=== PATIENT | male | born 1945 | race Caucasian/White ===

== ENCOUNTER → 2016-03-20 | Outpatient (CLI) | payer MEDICARE, OTHER ==
[~2016-03-20] MED LIST: REGADENOSON INJ 0.4 MG/5 ML DISP.SYRIN IV ONE
--- NOTE | 2016-03-20 20:06 | DRAGON STRESS TEST REPORT ---
Intravenous Lexiscan Cardiolite stress test using single photon emmision computerized tomography. Date of procedure: 03/20/2016. Ordering Provider: Dr. Tiera Pyle Indication: Chest pain, and a patient with coronary artery disease and coronary artery bypass graft surgery Coronary risk factors: Age, diabetes, hypertension , and strong family history of coronary artery disease. Resting EKG: Sinus rhythm cannot exclude old anterior and inferior my Jennifer fraction Stress EKG: No changes of ischemia. The patient had no chest pain or discomfort, and there were no arrhythmias seen. The patient had transient shortness of breath which was relieved with drinking Pepsi. Reason for termination: Protocol. Conclusions: Normal EKG and hemodynamic response to IV Lexiscan. Nuclear data: At rest the patient was given 14.89 millicuries of technetium 99m sestamibi injected intravenously. As per protocol rest non gated SPECT images were obtained. Subsequently the patient was given intravenous Lexiscan at a dose of 0.4 mg in 5 mL intravenously, followed by flush with normal saline. Subsequently the stress dose of 45.1 millicuries of technetium 99m sestamibi was injected intravenously. As per protocol stress gated images were obtained. Nuclear interpretation: Review of images showed that there is a mild to moderate perfusion defect in inferior wall in the stress images, and this normalizes in the resting images. The rest of the segments of the myocardium had normal perfusion at rest, and normal perfusion post stress with IV Lexiscan. All segments of the myocardium had normal motion, contraction, and thickening by gated study. The patient had a short septum. T. I D. ratio was normal at 1.17. Computer read rest, and stress left ventricular ejection fraction were 52 %, and 39 %, respectively. Visually both the stress and rest ejection fractions were normal, and greater than 55%. Conclusion: 1. There scintigraphic evidence of Lexiscan induced mild to moderate myocardial ischemia involving the inferior wall. 2. There is no scintigraphic evidence of myocardial infarction/scar. 3. The patient had short septum. Recommendations: !.Correlate clinically. If no significant Contraindication would recommend cardiac catheterization 2.Aggressive risk factor modification, and aggressively treating the underlying co- morbidities. [facility]ITAL[facility]
== END ==
LOC: RAD 08:31
PROVIDERS: ATTEND Specialist
DX: R07.9 Chest pain, unspecified (principal); I25.10 Atherosclerotic heart disease of native coronary artery without angina pectoris; Z95.1 Presence of aortocoronary bypass graft; I10 Essential (primary) hypertension; E11.9 Type 2 diabetes mellitus without complications
CPT/HCPCS: 93017; 78452; A9500; J2785; Q9969

== ENCOUNTER → 2016-04-22 | Outpatient (CLI) | payer MEDICARE, OTHER ==
[2016-04-22 17:02] LABS: ABSOLUTE BASOPHILS # (AUTO) 0.1 10^3/uL (0.0-0.2); ABSOLUTE EOSINOPHILS # (AUTO) 0.2 10^3/uL (0.0-0.6); ABSOLUTE LYMPHOCYTES (AUTO) 1.7 10^3/uL (0.5-4.7); ABSOLUTE MONOCYTES (AUTO) 0.5 10^3/uL (0.1-1.4); ABSOLUTE NEUT (AUTO) 5.5 10^3/uL (1.7-8.2); EOSINOPHILS % (AUTO) 2.8 % (0-6); HEMATOCRIT 41.3 % (37.9-51.0); HEMOGLOBIN 13.7 g/dL (13.5-17.0); HGB HCT DIFFERENCE -0.2; LYMPHOCYTES % (AUTO) 21.6 % (13-45); MEAN CORPUSCULAR HEMOGLOBIN 30.2 pg (27.0-33.4); MEAN CORPUSCULAR HGB CONC 33.3 g/dL (32.0-36.0); MEAN CORPUSCULAR VOLUME 91 fl (80-97); MONOCYTES % (AUTO) 5.7 % (3-13); RED BLOOD COUNT 4.55 10^6/uL (4.35-5.55); RED CELL DISTRIBUTION WIDTH 15.4 % (11.5-14.0); SEGMENTED NEUTROPHILS % (AUTO) 68.9 % (42-78)
[2016-04-22 17:11] LABS: PROTHROMBIN TIME 13.3 SEC (11.4-15.4)
[2016-04-22 17:12] LABS: PARTIAL THROMBOPLASTIN TIME 26.4 SEC (23.5-35.8)
[2016-04-22 17:24] LABS: ANION GAP 12 (5-19); BLOOD UREA NITROGEN 13 mg/dL (7-20); CARBON DIOXIDE 19 mmol/L (22-30); CHLORIDE 109 mmol/L (98-107); CREATININE RESULT 1.13 mg/dL (0.52-1.25); GLUCOSE 252 mg/dL (75-110); MAGNESIUM 1.9 mg/dL (1.6-2.3); POTASSIUM 4.3 mmol/L (3.6-5.0); SODIUM 139.5 mmol/L (137-145)
== END ==
LOC: OD 16:13
PROVIDERS: ATTEND Specialist
DX: E11.9 Type 2 diabetes mellitus without complications (principal); I12.9 Hypertensive chronic kidney disease with stage 1 through stage 4 chronic kidney disease, or unspecified chronic kidney disease; N18.9 Chronic kidney disease, unspecified; R09.89 Other specified symptoms and signs involving the circulatory and respiratory systems; R07.9 Chest pain, unspecified; Z79.899 Other long term (current) drug therapy; F06.4 Anxiety disorder due to known physiological condition; Z95.1 Presence of aortocoronary bypass graft; G20 Parkinson's disease; I49.5 Sick sinus syndrome; I34.0 Nonrheumatic mitral (valve) insufficiency; I73.9 Peripheral vascular disease, unspecified; G47.30 Sleep apnea, unspecified; Z95.0 Presence of cardiac pacemaker
CPT/HCPCS: 36415; 80051; 82565; 82947; 83735; 84520; 85025; 85610; 85730

== ENCOUNTER 2016-05-08 11:21 | Emergency (ER) | payer MEDICARE, OTHER ==
[2016-05-08 11:54] LABS: ABSOLUTE BASOPHILS # (AUTO) 0.1 10^3/uL (0.0-0.2); ABSOLUTE EOSINOPHILS # (AUTO) 0.3 10^3/uL (0.0-0.6); ABSOLUTE LYMPHOCYTES (AUTO) 2.3 10^3/uL (0.5-4.7); ABSOLUTE MONOCYTES (AUTO) 0.6 10^3/uL (0.1-1.4); ABSOLUTE NEUT (AUTO) 5.8 10^3/uL (1.7-8.2); BASOPHILS % (AUTO) 0.9 % (0-2); EOSINOPHILS % (AUTO) 3.6 % (0-6); HEMOGLOBIN 12.7 g/dL (13.5-17.0); HGB HCT DIFFERENCE -0.9; LYMPHOCYTES % (AUTO) 25.6 % (13-45); MEAN CORPUSCULAR HEMOGLOBIN 29.8 pg (27.0-33.4); MEAN CORPUSCULAR HGB CONC 32.6 g/dL (32.0-36.0); MEAN CORPUSCULAR VOLUME 92 fl (80-97); MONOCYTES % (AUTO) 6.2 % (3-13); RED BLOOD COUNT 4.26 10^6/uL (4.35-5.55); RED CELL DISTRIBUTION WIDTH 15.8 % (11.5-14.0); SEGMENTED NEUTROPHILS % (AUTO) 63.7 % (42-78); WHITE BLOOD COUNT 9.1 10^3/uL (4.0-10.5)
[2016-05-08 12:09] LABS: ALANINE AMINOTRANSFERASE 27 U/L (21-72); ALBUMIN 3.8 g/dL (3.5-5.0); ALKALINE PHOSPHATASE 70 U/L (38-126); ANION GAP 10 (5-19); ASPARTATE AMINO TRANSFERASE 42 U/L (17-59); BILIRUBIN,TOTAL 0.8 mg/dL (0.2-1.3); BLOOD UREA NITROGEN 9 mg/dL (7-20); CALCIUM 9.1 mg/dL (8.4-10.2); CARBON DIOXIDE 19 mmol/L (22-30); CHLORIDE 111 mmol/L (98-107); CREATINE KINASE 44 U/L (55-170); CREATININE RESULT 0.75 mg/dL (0.52-1.25); GLUCOSE 216 mg/dL (75-110); MAGNESIUM 1.6 mg/dL (1.6-2.3); SODIUM 140.2 mmol/L (137-145); TOTAL PROTEIN 6.2 g/dL (6.3-8.2); VENOUS BLOOD BASE EXCESS -4.3 mmol/L; VENOUS BLOOD HCO3 21.4 mmol/L (20-32); VENOUS BLOOD PCO2 41.4 mmHg (35-63); VENOUS BLOOD PH 7.33 (7.30-7.42)
--- NOTE | 2016-05-08 12:13 | ER Document Report ---
ED General - General Chief Complaint: Syncope Stated Complaint: WEAKNESS Time seen by provider: 11:25 Mode of Arrival: Wheelchair Information source: Patient, Relative Notes: 71-year-old male with a history of one vessel cardiac bypass surgery and AICD defibrillator placement and probably cardiomyopathy who is followed by Dr. Pyle and is scheduled have a heart catheterization in [place] at the end of this month who passed out in the emergency department today a visiting his who is a patient here. Patient apparently was exerting himself more than normal this morning caring for his before she came to the emergency department and did not eat breakfast. Daughter was with him and reports that when he walked into his 's room he became very pale I told in the back of his head and she had to catch him to keep her from falling. The patient says he never truly lost consciousness the episode only lasted a few seconds. Ports he had no sensation of chest pain, shortness breath, diaphoresis, nausea, or vomiting with this. He was immediately moved to an exam room and within a few minutes felt back to normal. Daughter reports he chronically has some weakness and shortness of breath related to heart problems and also has Parkinson's disease in his appearance at time of evaluation by this physician was back to his baseline. The patient is not sure what symptoms he's been having recently that prompted his referral [place] for catheterization. He reports no recent fever, chills, cough, chest pain, abdominal pain, back pain, hematemesis , hematochezia, or melena. He reports this sensation of needing to have a bowel movement now which is typical for him as he has frequent diarrhea related to his prior gastric bypass surgery. He denies any pain numbness weakness to any extremity. Physical Exam: General: Alert, appears well. Somewhat tremulous in bed which family reports is his baseline HEENT: Normocephalic. Atraumatic. PERRLA. Extraocular movements intact. Discs sharp no papilledema Oropharynx clear. Neck: Supple. Non-tender. No JVD no carotid bruits Respiratory: No respiratory distress. Clear and equal breath sounds bilaterally. Cardiovascular: Regular rate and rhythm. Abdominal: Normal Inspection. Soft, non-tender. No distension. Normal Bowel Sounds. No guarding rebound rigidity Back: Non-tender. No deformity or step off. Extremities: Moves all four extremities. Upper extremities: Normal inspection. Non-tender. Normal color. Normal ROM. Normal temperature. Lower extremities: Normal inspection. Non-tender. No edema. Normal color. Normal ROM. Normal temperature. Neurological: Cranial nerves III-XII grossly intact bilaterally. Strength 5/5 throughout. Sensation intact to light touch. Normal cognition. AAOx4. Normal speech. Cerebellar function intact by finger-nose test bilaterally Psychological: Normal affect. Normal Mood. Skin: Warm. Dry. Normal color. TRAVEL OUTSIDE OF THE [place] IN LAST 30 DAYS: No - Related Data Allergies/Adverse Reactions: adhesive tape [Adhesive Tape] Allergy (Verified 02/12/16 12:59) Blisters, Rash iodine [Iodine] Allergy (Verified 02/12/16 12:59) RASH, ITCH latex [Latex] Allergy (Verified 02/12/16 12:59) RASH povidone-iodine [From Betadine] Allergy (Verified 02/12/16 12:59) Soap [From Betadine] Allergy (Verified 02/12/16 12:59) meperidine HCl [From Demerol] Adverse Reaction (Verified 02/12/16 12:59) CAN CAUSE ITCHING IN LARGE DOSES promethazine HCl [From Phenergan] Adverse Reaction (Verified 02/12/16 12:59) Zqohjda-Roz-Eqx Reductase Inhibitor Adverse Reaction (Verified 02/12/16 12:59) elevated LFT's STEROIDS Adverse Reaction (Uncoded 02/12/16 12:59) WEAKNESS TO LEGS Past Medical History - Social History Smoking Status: Never Smoker Family History: CAD - Mother - Past Medical History Cardiac Medical History: Reports: Hx Coronary Artery Disease, Hx Heart Attack - BYPASS 05/2003, Hx Hypercholesterolemia, Hx Hypertension Pulmonary Medical History: Reports: Hx Bronchitis Denies: Hx Asthma, Hx COPD, Hx Pneumonia Neurological Medical History: Denies: Hx Cerebrovascular Accident, Hx Seizures Endocrine Medical History: Reports: Hx Diabetes Mellitus Type 2 Renal/ Medical History: Reports: Hx Kidney Stones GI Medical History: Reports: Hx Gastroesophageal Reflux Disease Past Surgical History: Reports: Hx Abdominal Surgery - gastric bypass, Hx Cardiac Surgery - BYPASS 2003, Hx Kidney (Renal Surgery) - lithotripsy, Hx Orthopedic Surgery - back; neck; right hand - Immunizations Immunizations up to date: Yes Hx Diphtheria, Pertussis, Tetanus Vaccination: Yes Hx Pneumococcal Vaccination: 03/03/13 Review of Systems - Review of Systems Constitutional: denies: Chills, Fever EENT: denies: Ear pain, Throat pain Cardiovascular: Syncope. denies: Chest pain, Dyspnea Respiratory: denies: Cough Gastrointestinal: denies: Abdominal pain, Diarrhea, Nausea, Vomiting, Blood in vomit, Black stools, Rectal bleeding Genitourinary: denies: Burning, Dysuria Musculoskeletal: denies: Back pain, Leg swelling Skin: denies: Rash Neurological/Psychological: denies: Speech impairment, Numbness Physical Exam - Vital signs Vitals: Temp Pulse Resp BP Pulse Ox 98.1 F 78 16 99/67 L 98 05/08/16 11:25 05/08/16 11:25 05/08/16 11:25 05/08/16 11:25 05/08/16 11:25 Course - Re-evaluation Re-evalutation: 05/08/16 18:20 Patient during his stay in emergency department and one episode where he sat up on the stretcher and then felt dizzy. His blood pressure dropped to 90 systolic his dizziness resolved with lying flat. He was treated with a 2 50 mL saline bolus his blood pressure improved to 119 he's had no further symptoms. Patient's [employer] pacemaker was interrogated and the tech reports that there was a several second long run of SVT at approximately 11:00 this morning. This is roughly the time when the patient had his syncopal episode but I'm not able to pinpoint that exactly. The patient has not had any chest pain or shortness of breath during his stay here. Differential here would include mild volume depletion, vagal syncope, symptomatic SVT for the patient also has an extensive prior cardiac history with a recent abnormal stress test and is scheduled for catheterization at [facility] in the near future. I discussed case with Dr. Pyle patient's checkman and he requests the patient be transferred divided now the hope of doing an urgent catheterization. I discussed the case with Dr. Ruthy Marvin packaging operator there and she has accepted the patient in transfer. I was informed initially that they had no beds available and plans were made to keep the patient in the emergency department pending bed availability which hopefully would be the following day. Later however were contacted by the [facility] and informed that they do have a bed and are coming to take the patient at time of dictation at 1815. Patient remains symptom-free at the moment and is stable for transport - Vital Signs Vital signs: Temp Pulse Resp BP Pulse Ox 98.1 F 63 16 119/81 96 05/08/16 16:00 05/08/16 16:00 05/08/16 17:01 05/08/16 17:00 05/08/16 17:01 - Laboratory Result Diagrams: 05/08/16 11:33 05/08/16 11:33 Laboratory results interpreted by me: 05/08/16 05/08/16 05/08/16 11:23 11:33 11:33 RBC 4.26 L Hgb 12.7 L RDW 15.8 H Chloride 111 H Carbon Dioxide 19 L Glucose 216 H POC Glucose 279 H Creatine Kinase 44 L Total Protein 6.2 L Urine Ascorbic Acid 05/08/16 14:20 RBC Hgb RDW Chloride Carbon Dioxide Glucose POC Glucose Creatine Kinase Total Protein Urine Ascorbic Acid 20 H - Diagnostic Test Radiology reviewed: Image reviewed, Reports reviewed - EKG Interpretation by Me Additional EKG results interpreted by me: 05/08/16 12:15 EKG reviewed by myself shows sinus rhythm at 67 with old inferior infarct and minimal nonspecific T-wave changes Discharge - Discharge Clinical Impression: Syncope Qualifiers: Syncope type: unspecified Qualified Code(s): R55 - Syncope and collapse CAD (coronary artery disease) Qualifiers: Coronary Disease-Associated Artery/Lesion type: [place] artery [place] vs. transplanted heart: [place] heart Associated angina: angina presence unspecified Qualified Code(s): I25.10 - Atherosclerotic heart disease of [place] coronary artery without angina pectoris Condition: Fair Disposition: [facility]
[2016-05-08 12:22] LABS: CREATINE KINASE MB < 0.22 ng/mL (<4.55); TROPONIN I < 0.012 ng/mL
[2016-05-08 14:46] LABS: APPEARANCE,URINE CLEAR; BILIRUBIN,URINE NEGATIVE (NEGATIVE); GLUCOSE, URINE NEGATIVE (NEGATIVE); KETONES,URINE NEGATIVE (NEGATIVE); LEUKOCYTE ESTERASE,URINE NEGATIVE (NEGATIVE); NITRITE,URINE NEGATIVE (NEGATIVE); PROTEIN,URINE NEGATIVE (NEGATIVE); URINE SPECIFIC GRAVITY 1.009; UROBILINOGEN,URINE NEGATIVE mg/dL (<2.0)
[2016-05-08] MEDS ORDERED: NORMAL SALINE 1000 ML 250 ML IV ONE (15:57)
[2016-05-08] MEDS ORDERED: ALBUTEROL SULFATE 0.083% NEB 2.5 MG/3 ML AMPUL NEB PRN (17:06)
[2016-05-08] MEDS ORDERED: ACETAMINOPHEN 325 MG TABLET PO PRN (17:06)
[2016-05-08] MEDS ORDERED: ONDANSETRON HCL INJ/PF 4 MG/2 ML SDV IV PRN (17:06)
[2016-05-08] MEDS ORDERED: DEXTROSE 40% GEL 15 GM TUBE PO PRN ×2 (17:11)
[2016-05-08] MEDS ORDERED: INSULIN LISPRO 100 UNIT/ML 3 ML VIAL SUBCUT PRN (17:11)
[2016-05-08] MEDS ORDERED: GLUCAGON,HUMAN RECOMB 1 MG INJ IM PRN (17:11)
[2016-05-08] MEDS ORDERED: DEXTROSE 50%-WATER 25 GM/50 ML DISP.SYRIN IV PRN ×2 (17:11)
--- NOTE | 2016-05-08 17:54 | PDOC H&P/TRANSFER SUM ---
General Admission Date/PCP: LAKESHA VILLA MD Transfer Date: 05/08/16 Accepting Facility: [facility] Resuscitation Status: Full Code Chief Complaint: Syncope - Transfer Diagnosis (1) Syncope Current Visit: Yes (2) Diabetes mellitus Current Visit: Yes (3) Status post gastric bypass for obesity Current Visit: Yes (4) Tardive dyskinesia Current Visit: Yes (5) CAD (coronary artery disease) Current Visit: Yes (6) Hypertension Current Visit: Yes (7) ADRIANNA (obstructive sleep apnea) Current Visit: Yes (8) Hypothyroidism Current Visit: Yes - Transfer Medications Home Medications: Allopurinol [Zyloprim 300 mg Tablet] 300 mg PO DAILY 08/01/14 Aspirin [Aspirin EC] 81 mg PO DAILY PRN 08/01/14 Buspirone HCl [Buspar 15 mg Tablet] 1 tab PO ACHS 08/01/14 Carvedilol [Coreg 6.25 mg Tablet] 1 tab PO BID 08/01/14 Docusate Sodium [Colace 100 mg Capsule] 100 mg PO DAILY 08/01/14 Furosemide [Lasix 40 mg Tablet] 40 mg PO QAM 08/01/14 Gabapentin Enacarbil [Horizant] 600 mg PO DAILY 08/01/14 Glimepiride [Amaryl 1 mg Tablet] 2 mg PO QAM 08/01/14 Hydrocodone/Acetaminophen [[place] 5-325 mg Tablet] 1 tab PO Q4H 08/01/14 Isosorbide Mononitrate [Imdur 60 mg Tablet.er] 60 mg PO DAILY 08/01/14 Lorazepam [Ativan 1 mg Tablet] 1 tab PO BID 08/01/14 Metformin HCl [Glucophage] 500 mg PO BID 08/01/14 Albuterol Sulfate [Proair HFA] 2 inhaler IH PRN PRN 02/12/16 Cholecalciferol (Vitamin D3) [Vitamin D3 400 Unit Tablet] 400 unit PO DAILY 02/15 Donepezil HCl 10 mg PO DAILY 02/12/16 Doxepin HCl [Sinequan 25 mg Capsule] 25 mg PO DAILY 02/12/16 Gabapentin Enacarbil [Horizant] 600 mg PO DAILY 02/12/16 Liothyronine Sodium [Cytomel] 5 mcg PO DAILY 02/12/16 Olopatadine HCl [Pataday] 2.5 drop BTH_EYE DAILY 02/12/16 Ondansetron [Ondansetron Odt] 8 mg PO PRN PRN 02/12/16 Rizatriptan Benzoate [Maxalt] 5 mg PO PRN PRN 02/12/16 Zaleplon [Sonata] 10 mg PO DAILY 02/12/16 Transfer Medications: Current Medications Acetaminophen (Tylenol 325 Mg Tablet) 650 mg PO Q4HP PRN PRN Reason: FOR PAIN OR TEMP Stop: 06/07/16 17:05 Albuterol (Ventolin 0.083% Neb 2.5 Mg/3 Ml Ampul) 2.5 mg NEB RTQ4HP PRN PRN Reason: SHORTNESS OF BREATH Stop: 06/07/16 17:05 Aspirin (Ecotrin 325 Mg Ec Tablet) 325 mg PO DAILY HENRI Stop: 06/08/16 09:59 Dextrose (Dextrose Inj 50% Syringe (25 Gm/50 Ml)) 12.5 gm IV PRN PRN; Protocol PRN Reason: FOR BG 50-69 IN ALERT PATIENT Stop: 06/07/16 17:10 Dextrose (Dextrose Inj 50% Syringe (25 Gm/50 Ml)) 25 gm IV PRN PRN PRN Reason: Protocol Stop: 06/07/16 17:10 Enoxaparin Sodium (Lovenox Inj 40 Mg/0.4 Ml Disp.Syrin) 40 mg SUBCUT QAM HENRI Stop: 06/08/16 07:59 Enoxaparin Sodium (Lovenox Inj 40 Mg/0.4 Ml Disp.Syrin) 40 mg SUBCUT NOW ONE Stop: 05/08/16 18:31 Glucagon (Glucagen Inj 1 Mg Vial) 1 mg IM PRN PRN; Protocol PRN Reason: Evaluate for BG < 70 Stop: 06/07/16 17:10 Glucose (Glutose 40% Gel 15 Gm Tube) 15 gm PO PRN PRN; Protocol PRN Reason: FOR BG 50-69 IN ALERT PATIENT Stop: 06/07/16 17:10 Glucose (Glutose 40% Gel 15 Gm Tube) 30 gm PO PRN PRN; Protocol PRN Reason: FOR BG < 50 IN ALERT PATIENT Stop: 06/07/16 17:10 Insulin Human Lispro (Humalog Insulin 100 Unit/1 Ml 3 Ml Vial) 0 - 12 unit SUBCUT ACHSP PRN PRN Reason: Protocol Stop: 06/07/16 17:10 Ondansetron HCl (Zofran Inj/Pf 4 Mg/2 Ml Sdv) 4 mg IV Q8HP PRN PRN Reason: FOR NAUSEA/VOMITING Stop: 06/07/16 17:05 Sodium Chloride (Saline Flush 2.5 Ml Monoject Prefil Syrin) 2.5 ml IV Q8 HENRI Stop: 06/07/16 21:59 - Allergies Allergies/Adverse Reactions: adhesive tape [Adhesive Tape] Allergy (Verified 02/12/16 12:59) Blisters, Rash iodine [Iodine] Allergy (Verified 02/12/16 12:59) RASH, ITCH latex [Latex] Allergy (Verified 02/12/16 12:59) RASH povidone-iodine [From Betadine] Allergy (Verified 02/12/16 12:59) Soap [From Betadine] Allergy (Verified 02/12/16 12:59) meperidine HCl [From Demerol] Adverse Reaction (Verified 02/12/16 12:59) CAN CAUSE ITCHING IN LARGE DOSES promethazine HCl [From Phenergan] Adverse Reaction (Verified 02/12/16 12:59) Hgnhoke-Fyg-Tdp Reductase Inhibitor Adverse Reaction (Verified 02/12/16 12:59) elevated LFT's STEROIDS Adverse Reaction (Uncoded 02/12/16 12:59) WEAKNESS TO LEGS - Diet/Activity Discharge Diet: Cardiac, Diabetic Discharge Activity: Activity As Tolerated History of Present Illness Admission Date/PCP: LAKESHA VILLA MD Patient complains of: Syncope History of Present Illness: TATA RAYGOZA is a 71 year old male with past medical history of coronary artery disease, diabetes, hypertension, abnormal stress test, pacemaker that had a syncopal episode in the emergency department while visiting with his who was also being admitted for syncopal episode. Patient had stress test on 03/20/[address] Pyle that showed mild to moderate ischemia of the inferior wall. He was supposed to have outpatient cardiac catheterization arranged but this has not been performed. Patient has a really been evaluated in the emergency department by his manager talent Dr. Pyle and Dr. Pyle has arranged for patient to be transferred to [facility] for interventional cardiology evaluation. [facility] will be able to accept him in the morning. Patient is chest pain-free at time of my evaluation. Past Medical History Cardiac Medical History: Reports: Coronary Artery Disease, Myocardial Infarction - BYPASS 05/2003, Hyperlipidema, Hypertension Pulmonary Medical History: Reports: Bronchitis Denies: Asthma, Chronic Obstructive Pulmonary Disease (COPD), Pneumonia Neurological Medical History: Denies: Seizures Endocrine Medical History: Reports: Diabetes Mellitus Type 2, Hypothyroidism GI Medical History: Reports: Gastroesophageal Reflux Disease Hematology: Denies: Anemia Past Surgical History Past Surgical History: Reports: Coronary Artery Bypass Graft, Gastric Bypass Surgery, Orthopedic Surgery - back; neck; right hand, Pacemaker Social History Information Source: Patient Lives with: Spouse/Significant other Smoking Status: Never Smoker Frequency of Alcohol Use: None Hx Recreational Drug Use: No Hx Prescription Drug Abuse: No - Advance Directive Resuscitation Status: Full Code Family History Family History: CAD - Mother Parental Family History Reviewed: Yes Children Family History Reviewed: Yes Sibling(s) Family History Reviewed.: Yes Review of Systems Constitutional: ABSENT: chills, fever(s), headache(s), weight gain, weight loss Eyes: ABSENT: visual disturbances Ears: ABSENT: hearing changes Cardiovascular: PRESENT: chest pain - Intermittent. ABSENT: dyspnea on exertion , edema, orthropnea, palpitations Respiratory: ABSENT: cough, hemoptysis Gastrointestinal: ABSENT: abdominal pain, constipation, diarrhea, hematemesis, hematochezia, nausea, vomiting Genitourinary: ABSENT: dysuria, hematuria Musculoskeletal: ABSENT: joint swelling Integumentary: ABSENT: rash, wounds Neurological: PRESENT: syncope. ABSENT: abnormal gait, abnormal speech, confusion, dizziness, focal weakness Psychiatric: ABSENT: anxiety, depression, homidical ideation, suicidal ideation Endocrine: ABSENT: cold intolerance, heat intolerance, polydipsia, polyuria Hematologic/Lymphatic: ABSENT: easy bleeding, easy bruising Physical Exam Vital Signs: Temp Pulse Resp BP Pulse Ox 98.1 F 63 18 90/49 L 89 L 05/08/16 16:00 05/08/16 16:00 05/08/16 16:00 05/08/16 16:00 05/08/16 16:00 Intake & Output 05/07/16 05/08/16 05/09/16 06:59 06:59 06:59 Weight 113.398 kg PHYSICAL EXAM: GENERAL: Appears well, no acute distress HEENT: Normocephalic, no scleral icterus, conjunctiva clear, EOEM intact, PERRLA , moist mucous membranes NECK: trachea midline, no thyromegally RESPIRATORY: Clear to auscultation, no wheezes/rhonchi CARDIAC: Regular rate and rhythm, no murmur/bart/rub ABDOMEN: Soft, no distension, no tenderness, no guarding, normal bowel sounds, negative Rodriguez sign RECTAL: deferred : deferred EXTREMITIES: No edema, cyanosis, clubbing MUSCULOSKELETAL: No joint swelling or deformity VASCULAR: normal peripheral pulses NEUROLOGIC: Alert, oriented to person/place/time, normal speech, cranial nerves grossly intact, 5/5 strength in all extremities, tactile sensation intact in all extremities SKIN: No rash, no wounds, no worrisome skin lesions PSYCHIATRIC: Normal mood, normal affect Results Laboratory Results: 05/08/16 11:33 05/08/16 11:33 05/08/16 05/08/16 05/08/16 11:33 11:33 11:33 WBC 9.1 RBC 4.26 L Hgb 12.7 L Hct 39.0 MCV 92 MCH 29.8 MCHC 32.6 RDW 15.8 H Plt Count 213 Seg Neutrophils % 63.7 Lymphocytes % 25.6 Monocytes % 6.2 Eosinophils % 3.6 Basophils % 0.9 Absolute Neutrophils 5.8 Absolute Lymphocytes 2.3 Absolute Monocytes 0.6 Absolute Eosinophils 0.3 Absolute Basophils 0.1 VBG pH 7.33 VBG pCO2 41.4 VBG HCO3 21.4 VBG Base Excess -4.3 Sodium 140.2 Potassium 4.0 Chloride 111 H Carbon Dioxide 19 L Anion Gap 10 BUN 9 Creatinine 0.75 Est GFR ( Amer) > 60 Est GFR (Non-Af Amer) > 60 Glucose 216 H Calcium 9.1 Magnesium 1.6 Total Bilirubin 0.8 AST 42 ALT 27 Alkaline Phosphatase 70 Total Protein 6.2 L Albumin 3.8 Urine Color Urine Appearance Urine pH Ur Specific Ione Urine Protein Urine Glucose (UA) Urine Ketones Urine Blood Urine Nitrite Ur Leukocyte Esterase Urine WBC (Auto) Urine RBC (Auto) 05/08/16 14:20 WBC RBC Hgb Hct MCV MCH MCHC RDW Plt Count Seg Neutrophils % Lymphocytes % Monocytes % Eosinophils % Basophils % Absolute Neutrophils Absolute Lymphocytes Absolute Monocytes Absolute Eosinophils Absolute Basophils VBG pH VBG pCO2 VBG HCO3 VBG Base Excess Sodium Potassium Chloride Carbon Dioxide Anion Gap BUN Creatinine Est GFR ( Amer) Est GFR (Non-Af Amer) Glucose Calcium Magnesium Total Bilirubin AST ALT Alkaline Phosphatase Total Protein Albumin Urine Color YELLOW Urine Appearance CLEAR Urine pH 5.0 Ur Specific Ione 1.009 Urine Protein NEGATIVE Urine Glucose (UA) NEGATIVE Urine Ketones NEGATIVE Urine Blood NEGATIVE Urine Nitrite NEGATIVE Ur Leukocyte Esterase NEGATIVE Urine WBC (Auto) 1 Urine RBC (Auto) 0 05/08/16 05/08/16 11:33 11:33 Creatine Kinase 44 L CK-MB (CK-2) < 0.22 Troponin I < 0.012 NT-Pro-B Natriuret Pep 87 Impressions: Chest X-Ray 05/08/16 11:44 IMPRESSION: Old sternotomy for CABG. No cardiomegaly. Left-sided dual lead pacemaker unchanged. 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 No acute findings Assessment & Plan - Time Time Spent: Greater than 70 Minutes Anticipated dischagre: [facility] Within: within 24 hours - Plan Summary Plan Summary: Transfer to [facility] for interventional cardiology evaluation.
[2016-05-08 18:13] VITALS: BP 119/81
[2016-05-08] MEDS ORDERED: ENOXAPARIN SODIUM INJ 40 MG/0.4 ML DISP.SYRIN SUBCUT ONE (18:30)
[2016-05-09] MEDS ORDERED: ENOXAPARIN SODIUM INJ 40 MG/0.4 ML DISP.SYRIN SUBCUT SCH (08:00)
[2016-05-09] MEDS ORDERED: ASPIRIN 325 MG TABLET, ENT COATED PO SCH (10:00)
== END 2016-05-08 18:53 | disposition short-term general hospital (02) ==
LOC: ER 11:21
DX: R55 Syncope and collapse (principal); I25.10 Atherosclerotic heart disease of native coronary artery without angina pectoris; R53.1 Weakness; E78.00 Pure hypercholesterolemia, unspecified; G47.33 Obstructive sleep apnea (adult) (pediatric); E03.9 Hypothyroidism, unspecified; G24.01 Drug induced subacute dyskinesia; I10 Essential (primary) hypertension; E11.9 Type 2 diabetes mellitus without complications; Z95.810 Presence of automatic (implantable) cardiac defibrillator; Z95.1 Presence of aortocoronary bypass graft; Z87.442 Personal history of urinary calculi; Z98.84 Bariatric surgery status; Z91.040 Latex allergy status; I25.2 Old myocardial infarction; Z79.84 Long term (current) use of oral hypoglycemic drugs; Z79.82 Long term (current) use of aspirin; Z79.899 Other long term (current) drug therapy
CPT/HCPCS: 99285; 96360; 96361; 36415; 87086; 82553; 82962; 82550; 83735; 85025; 80053; 81001; 84484; 82803; 83880; 71010; 78582; 70450; A9540; A9567; Q9969

== ENCOUNTER → 2016-08-09 | Outpatient (CLI) | payer MEDICARE, OTHER ==
--- NOTE | 2016-08-09 12:40 | RADIOLOGY REPORT (SQ) ---
EXAM DESCRIPTION: U/S ABDOMEN COMPLETE W/DOPPLER COMPLETED DATE/TIME: 08/09/2016 11:54 am REASON FOR STUDY: RUQ ABD PAIN R10.11 RIGHT UPPER QUADRANT PAIN COMPARISON: None. TECHNIQUE: Dynamic and static grayscale images acquired of the abdomen and recorded on PACS. Additio nal selected color Doppler and spectral images recorded. LIMITATIONS: Study is limited due to overlying bowel gas. FINDINGS: PANCREAS: Pancreas could not be visualized due to overlying bowel gas. LIVER: Limited visualization. No mass lesions are identified. LIVER VASCULATURE: Normal blood flow is identified in the portal vein. GALLBLADDER: Status post cholecystectomy ULTRASOUND-DETECTED KANG'S SIGN: Negative. INTRAHEPATIC DUCTS AND COMMON DUCT: Common bile duct was not visualized. No dilated intrahepatic stewart e ducts were seen. INFERIOR VENA CAVA: IVC could not be visualized due to overlying bowel gas. AORTA: The proximal abdominal aorta could not be visualized due to overlying bowel gas. There is no evidence for an abdominal aortic aneurysm in the mid and distal abdominal aorta. RIGHT KIDNEY: 11.2 cm in length. Normal echogenicity. No solid or suspicious masses. No hydron ephrosis. No calcifications. LEFT KIDNEY: 11.1 cm in length. Normal echogenicity. No solid or suspicious masses. No hydrone phrosis. No calcifications. SPLEEN: Normal size. No solid masses. PERITONEAL AND PLEURAL SPACES: No ascites or effusions. OTHER: No other significant finding. IMPRESSION: Somewhat limited study as noted above. No significant intra-abdominal abnormalities wer e identified. Findings as noted above TECHNICAL DOCUMENTATION: JOB ID: [id number] [employer]- All Rights Reserved
== END ==
LOC: RAD 10:48
PROVIDERS: ATTEND Internal Medicine Medical Oncology
DX: R10.11 Right upper quadrant pain (principal)
CPT/HCPCS: 76700; 93976

== ENCOUNTER 2016-09-09 12:44 | Emergency (ER) | payer MEDICARE, OTHER ==
[2016-09-09] MEDS ORDERED: ASPIRIN 81 MG TABLET, CHEWABLE PO ONE (13:05)
--- NOTE | 2016-09-09 13:05 | ER Document Report ---
ED Medical Screen (RME) - General Chief Complaint: Syncope Stated Complaint: POSSIBLE SYNCOPAL EPISODE Time Seen by Provider: 09/09/16 12:59 Mode of Arrival: Medic Information source: Patient, Relative Notes: 71-year-old male history of diabetes pacemaker previous bypass without a heart attack presents after syncopal episode while at [employer], patient had no symptoms prior to his syncope I have greeted and performed a rapid initial assessment of this patient. A comprehensive ED assessment and evaluation of the patient, analysis of test results and completion of the medical decision making process will be conducted by additional ED providers. PHYSICAL EXAMINATION: GENERAL: Well-appearing, well-nourished and in no acute distress. HEAD: Atraumatic, normocephalic. Collar placed EYES: Pupils equal round extraocular movements intact, conjunctiva are normal. ENT: Nares patent NECK: Normal range of motion LUNGS: No respiratory distress Musculoskeletal: Normal range of motion NEUROLOGICAL: Normal speech, normal gait. PSYCH: Normal mood, normal affect. SKIN: Facial abrasion left elbow TRAVEL OUTSIDE OF THE [place]. IN LAST 30 DAYS: No - Related Data Allergies/Adverse Reactions: adhesive tape [Adhesive Tape] Allergy (Verified 05/08/16 18:49) Blisters, Rash iodine [Iodine] Allergy (Verified 05/08/16 18:49) RASH, ITCH latex [Latex] Allergy (Verified 05/08/16 18:49) RASH povidone-iodine [From Betadine] Allergy (Verified 05/08/16 18:49) Soap [From Betadine] Allergy (Verified 05/08/16 18:49) meperidine HCl [From Demerol] Adverse Reaction (Verified 05/08/16 18:49) CAN CAUSE ITCHING IN LARGE DOSES promethazine HCl [From Phenergan] Adverse Reaction (Verified 05/08/16 18:49) Pnewfti-Bes-Kui Reductase Inhibitor Adverse Reaction (Verified 05/08/16 18:49) elevated LFT's STEROIDS Adverse Reaction (Uncoded 05/08/16 18:49) WEAKNESS TO LEGS Past Medical History - Past Medical History Cardiac Medical History: Reports: Hx Coronary Artery Disease, Hx Heart Attack - BYPASS 05/2003, Hx Hypercholesterolemia, Hx Hypertension Pulmonary Medical History: Reports: Hx Bronchitis Denies: Hx Asthma, Hx COPD, Hx Pneumonia Neurological Medical History: Denies: Hx Cerebrovascular Accident, Hx Seizures Endocrine Medical History: Reports: Hx Diabetes Mellitus Type 2, Hx Hypothyroidism Renal/ Medical History: Reports: Hx Kidney Stones. Denies: Hx Peritoneal Dialysis GI Medical History: Reports: Hx Gastroesophageal Reflux Disease Past Surgical History: Reports: Hx Abdominal Surgery - gastric bypass, Hx Cardiac Surgery - BYPASS 2003, Hx Coronary Artery Bypass Graft, Hx Gastric Bypass Surgery, Hx Kidney (Renal Surgery) - lithotripsy, Hx Orthopedic Surgery - back; neck; right hand, Hx Pacemaker - Immunizations Immunizations up to date: Yes Hx Diphtheria, Pertussis, Tetanus Vaccination: Yes Physical Exam - Vital signs Vitals: Temp Pulse Resp BP Pulse Ox 97.2 F 62 16 108/67 98 09/09/16 12:51 09/09/16 12:51 09/09/16 12:51 09/09/16 12:51 09/09/16 12:51 Course - Vital Signs Vital signs: Temp Pulse Resp BP Pulse Ox 97.2 F 62 16 108/67 98 09/09/16 12:51 09/09/16 12:51 09/09/16 12:51 09/09/16 12:51 09/09/16 12:51
--- NOTE | 2016-09-09 13:27 | RADIOLOGY REPORT (SQ) ---
EXAM DESCRIPTION: CT HEAD WITHOUT COMPLETED DATE/TIME: 09/09/2016 1:18 pm REASON FOR STUDY: syncope COMPARISON: 05/08/2016. TECHNIQUE: Axial images acquired through the brain without intravenous contrast. Images reviewed wi th bone, brain and subdural windows. Images stored on PACS. All CT scanners at this facility use dose modulation, iterative reconstruction, and/or weight based d osing when appropriate to reduce radiation dose to as low as reasonably achievable (ALARA). [facility]: Dose Right [facility]: CareDose [facility]: Dose Right [facility]: Teradose 4D [facility]: Smart Trovit RADIATION DOSE: Up-to-date CT equipment and radiation dose reduction techniques were employed. CTDIv ol: 64.6 mGy. DLP: 1163 mGy-cm.mGy. LIMITATIONS: None. FINDINGS: VENTRICLES: Prominent. CEREBRUM: No masses. No hemorrhage. No midline shift. Areas of low density in the white matter mos t likely due to chronic micro-vascular ischemic change. 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 No evidence for acute infarction. CEREBELLUM: No masses. No hemorrhage. No alteration of density. No evidence for acute infarction. EXTRAAXIAL SPACES: Age-related involutional change. No fluid collections. No masses. ORBITS AND GLOBE: No intra- or extraconal masses. Normal contour of globe without masses. CALVARIUM: No fracture. PARANASAL SINUSES: No fluid or mucosal thickening. SOFT TISSUES: No mass or hematoma. OTHER: No other significant finding. IMPRESSION: CHRONIC CHANGES OF ATROPHY AND MICROVASCULAR ISCHEMIA. 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 NO ACUTE PROCESS. TECHNICAL DOCUMENTATION: JOB ID: [id number] Quality ID # [id number]: Final reports with documentation of one or more dose reduction techniques (e.g., Au tomated exposure control, adjustment of the mA and/or kV according to patient size, use of iterative reconstruction technique) 2010 [employer]- All Rights Reserved
--- NOTE | 2016-09-09 13:28 | RADIOLOGY REPORT (SQ) ---
EXAM DESCRIPTION: CHEST SINGLE VIEW COMPLETED DATE/TIME: 09/09/2016 1:19 pm REASON FOR STUDY: syncope COMPARISON: 02/12/2016. EXAM PARAMETERS: NUMBER OF VIEWS: One view. TECHNIQUE: Single frontal radiographic view of the chest acquired. RADIATION DOSE: NA LIMITATIONS: None. FINDINGS: LUNGS AND PLEURA: Mild atelectasis/ scarring in the left base. No infiltrates, masses or pneumothorax. No pleural effusion. MEDIASTINUM AND HILAR STRUCTURES: No masses. Contour normal. HEART AND VASCULAR STRUCTURES: Heart normal in size. Normal vasculature. BONES: No acute findings. HARDWARE: Sternotomy wires. Pacemaker. Clips in the upper abdomen. OTHER: No other significant finding. IMPRESSION: NO ACUTE RADIOGRAPHIC FINDING IN THE CHEST. TECHNICAL DOCUMENTATION: JOB ID: [id number]
[2016-09-09 14:34] LABS: ABSOLUTE BASOPHILS # (AUTO) 0.1 10^3/uL (0.0-0.2); ABSOLUTE EOSINOPHILS # (AUTO) 0.3 10^3/uL (0.0-0.6); ABSOLUTE LYMPHOCYTES (AUTO) 2.1 10^3/uL (0.5-4.7); ABSOLUTE MONOCYTES (AUTO) 0.4 10^3/uL (0.1-1.4); ABSOLUTE NEUT (AUTO) 3.7 10^3/uL (1.7-8.2); ALANINE AMINOTRANSFERASE 185 U/L (21-72); ALBUMIN 4.2 g/dL (3.5-5.0); ALKALINE PHOSPHATASE 84 U/L (38-126); ANION GAP 9 (5-19); ASPARTATE AMINO TRANSFERASE 426 U/L (17-59); BASOPHILS % (AUTO) 0.8 % (0-2); BILIRUBIN,DIRECT 0.3 mg/dL (0.0-0.4); BILIRUBIN,TOTAL 0.6 mg/dL (0.2-1.3); BLOOD UREA NITROGEN 9 mg/dL (7-20); CALCIUM 9.4 mg/dL (8.4-10.2); CARBON DIOXIDE 30 mmol/L (22-30); CHLORIDE 96 mmol/L (98-107); CREATINE KINASE 36 U/L (55-170); CREATININE RESULT 0.88 mg/dL (0.52-1.25); GLUCOSE 239 mg/dL (75-110); HEMATOCRIT 37.4 % (37.9-51.0); HEMOGLOBIN 12.6 g/dL (13.5-17.0); HGB HCT DIFFERENCE 0.4; LYMPHOCYTES % (AUTO) 31.9 % (13-45); MEAN CORPUSCULAR HEMOGLOBIN 30.7 pg (27.0-33.4); MEAN CORPUSCULAR HGB CONC 33.7 g/dL (32.0-36.0); MEAN CORPUSCULAR VOLUME 91 fl (80-97); MONOCYTES % (AUTO) 6.8 % (3-13); POTASSIUM 4.7 mmol/L (3.6-5.0); RED BLOOD COUNT 4.11 10^6/uL (4.35-5.55); RED CELL DISTRIBUTION WIDTH 14.2 % (11.5-14.0); SEGMENTED NEUTROPHILS % (AUTO) 56.5 % (42-78); SODIUM 134.6 mmol/L (137-145); TOTAL PROTEIN 6.7 g/dL (6.3-8.2); WHITE BLOOD COUNT 6.5 10^3/uL (4.0-10.5)
[2016-09-09 14:45] LABS: CREATINE KINASE MB 0.59 ng/mL (<4.55)
[2016-09-09 14:50] LABS: TROPONIN I < 0.012 ng/mL
--- NOTE | 2016-09-09 15:00 | RADIOLOGY REPORT (SQ) ---
EXAM DESCRIPTION: CERV SP 4 OR 5 VIEWS COMPLETED DATE/TIME: 09/09/2016 2:23 pm REASON FOR STUDY: fall COMPARISON: August 2012 NUMBER OF VIEWS: Five views. TECHNIQUE: AP, lateral, obliques and odontoid radiographic images acquired of the cervical spine. LIMITATIONS: None. FINDINGS: MINERALIZATION: Normal. ALIGNMENT: Anatomic. VERTEBRAE: Vertebral bodies of normal height. DISCS: The previously described postsurgical changes at the C5-C6 level are again identified. There is almost complete loss of the C5-C6 disc space height. There is decrease in the C6 -C7 disc space h eighs with associated osteophytic lipping. FORAMINA: No osteophytes or foraminal narrowing. LATERAL AND POSTERIOR ELEMENTS: Facets, lateral masses and spinous processes without significant find ings. HARDWARE: Orthopedic hardware is identified at the C5-C6 level. SOFT TISSUES: No masses or calcifications. Lung apices clear. OTHER: No other significant finding. IMPRESSION: Degenerative and postsurgical changes as noted above. No acute fracture or dislocation. TECHNICAL DOCUMENTATION: JOB ID: [id number] [employer]- All Rights Reserved
--- NOTE | 2016-09-09 15:31 | ER Document Report ---
ED Syncope and Near Syncope - General Mode of Arrival: Medic Information source: Patient, Relative TRAVEL OUTSIDE OF THE [place].S. IN LAST 30 DAYS: No - HPI Patient complains to provider of: Fainting <XIMENA PAGE - Last Filed: 09/09/16 15:26> <MARILYN CORRAL - Last Filed: 09/09/16 18:58> - General Chief Complaint: Syncope Stated Complaint: POSSIBLE SYNCOPAL EPISODE Time Seen by Provider: 09/09/16 12:59 Notes: Patient is a 71 year old male, with a past medical history including bypass surgery and pacemaker placement, who presents to the emergency department with his family via EMS after a syncopal episode around noon today. Patient was at [employer] when he became lightheaded and passed out hitting the back of his head. states that patient was not out long. Patient complains of head and back pain. 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 Patient also states that he broke a rib about 6-8 weeks ago while lying down. (XIMENA PAGE) - Related Data Allergies/Adverse Reactions: adhesive tape [Adhesive Tape] Allergy (Verified 05/08/16 18:49) Blisters, Rash iodine [Iodine] Allergy (Verified 05/08/16 18:49) RASH, ITCH latex [Latex] Allergy (Verified 05/08/16 18:49) RASH povidone-iodine [From Betadine] Allergy (Verified 05/08/16 18:49) Soap [From Betadine] Allergy (Verified 05/08/16 18:49) meperidine HCl [From Demerol] Adverse Reaction (Verified 05/08/16 18:49) CAN CAUSE ITCHING IN LARGE DOSES promethazine HCl [From Phenergan] Adverse Reaction (Verified 05/08/16 18:49) Hvoxqtl-Bny-Rme Reductase Inhibitor Adverse Reaction (Verified 05/08/16 18:49) elevated LFT's STEROIDS Adverse Reaction (Uncoded 05/08/16 18:49) WEAKNESS TO LEGS Past Medical History - General Information source: Patient, Relative - Social History Smoking Status: Never Smoker Chew tobacco use (# tins/day): No Frequency of alcohol use: None Drug Abuse: None Family History: CAD - Mother Patient has suicidal ideation: No Patient has homicidal ideation: No - Past Medical History Cardiac Medical History: Reports: Hx Coronary Artery Disease, Hx Heart Attack - BYPASS 05/2003, Hx Hypercholesterolemia, Hx Hypertension Pulmonary Medical History: Reports: Hx Bronchitis Endocrine Medical History: Reports: Hx Diabetes Mellitus Type 2, Hx Hypothyroidism Renal/ Medical History: Reports: Hx Kidney Stones GI Medical History: Reports: Hx Gastroesophageal Reflux Disease Past Surgical History: Reports: Hx Abdominal Surgery - gastric bypass, Hx Cardiac Surgery - BYPASS 2003, Hx Coronary Artery Bypass Graft, Hx Gastric Bypass Surgery, Hx Kidney (Renal Surgery) - lithotripsy, Hx Orthopedic Surgery - back; neck; right hand, Hx Pacemaker - Immunizations Immunizations up to date: Yes Hx Diphtheria, Pertussis, Tetanus Vaccination: Yes Hx Pneumococcal Vaccination: 03/03/13 <XIMENA PAGE - Last Filed: 09/09/16 15:26> Review of Systems - Review of Systems Constitutional: No symptoms reported EENT: No symptoms reported Cardiovascular: See HPI, Syncope, Lightheaded Respiratory: No symptoms reported Gastrointestinal: No symptoms reported Genitourinary: No symptoms reported Male Genitourinary: No symptoms reported Musculoskeletal: No symptoms reported Skin: No symptoms reported Hematologic/Lymphatic: No symptoms reported Neurological/Psychological: No symptoms reported -: Yes All other systems reviewed and negative <XIMENA PAGE - Last Filed: 09/09/16 15:26> Physical Exam - Vital signs Interpretation: Normal - General General appearance: Appears well, Alert - HEENT Head: Normocephalic, Atraumatic. No: Tenderness Neck: Normal - Respiratory Respiratory status: No respiratory distress Chest status: Nontender Breath sounds: Normal Chest palpation: Normal - Cardiovascular Rhythm: Regular Heart sounds: Normal auscultation Murmur: No - Abdominal Inspection: Normal Distension: No distension Bowel sounds: Normal Tenderness: Nontender Organomegaly: No organomegaly - Back Back: Normal, Nontender - Extremities General upper extremity: Normal inspection General lower extremity: Normal inspection. No: Edema - Neurological Neuro grossly intact: Yes Cognition: Normal Orientation: AAOx4 [place] Coma Scale Eye Opening: Spontaneous [place] Coma Scale Verbal: Oriented [place] Coma Scale Motor: Obeys Commands [place] Coma Scale Total: 15 Speech: Normal Sensory: Normal - Psychological Associated symptoms: Normal affect, Normal mood - Skin Skin Temperature: Warm Skin Moisture: Dry Skin Color: Normal <KAYLEEXIMENA - Last Filed: 09/09/16 15:26> Course - Laboratory Result Diagrams: 09/09/16 14:10 09/09/16 14:10 <XIMENA PAGE - Last Filed: 09/09/16 15:26> - Laboratory Result Diagrams: 09/09/16 14:10 09/09/16 14:10 - Diagnostic Test Radiology reviewed: Image reviewed, Reports reviewed - No acute findings, see radiologist reports. - EKG Interpretation by Me EKG shows normal: Sinus rhythm, Intervals, ST-T Waves. abnormal: [place], QRS Complexes - Old anterolateral TX Rate: Normal - 62 Rhythm: NSR [place]/QRS: Left axis deviation, IVCD - Consults Dr. Canas Time consulted: 18:50 Consulted provider: follow-up in office <MARILYN CORRAL - Last Filed: 09/09/16 18:58> - Re-evaluation Re-evalutation: 09/09/16 18:57 Interrogation the pacemaker did not show any rhythm disturbance today. The patient did have an outpatient ultrasound ordered by his oncologist recently. There is a possibility he had elevated liver enzymes on office lab work. His elevated enzymes today are new compared to May of this year. He is to follow- up with his massage operator tomorrow, and call his oncologist to report the elevated liver enzymes noted today. (MARILYN CORRAL) - Vital Signs Vital signs: Temp Pulse Resp BP Pulse Ox 97.2 F 62 21 H 107/67 96 09/09/16 12:51 09/09/16 12:51 09/09/16 17:01 09/09/16 17:01 09/09/16 17:01 - Laboratory Laboratory results interpreted by me: 09/09/16 09/09/16 14:10 14:10 RBC 4.11 L Hgb 12.6 L Hct 37.4 L RDW 14.2 H Sodium 134.6 L Chloride 96 L Glucose 239 H AST 426 H ALT 185 H Creatine Kinase 36 L Discharge <XIMENA PAGE - Last Filed: 09/09/16 15:26> <MARILYN CORRAL - Last Filed: 09/09/16 18:58> - Discharge Clinical Impression: Syncope and collapse, Elevated liver enzymes Condition: Stable Disposition: HOME, SELF-CARE Additional Instructions: Follow-up with Dr. Canas's office tomorrow for recheck. Call Dr. Gutierrez to report the elevated liver enzymes so she can compare with records in her office. RETURN TO THE EMERGENCY ROOM IF ANY NEW OR WORSENING SYMPTOMS. Referrals: LAKESHA VILLA MD [Primary Care Provider] - Follow up as needed Scribe Attestation: 09/09/16 18:57 I personally performed the services described in the documentation, reviewed and edited the documentation which was dictated to the scribe in my presence, and it accurately records my words and actions. (MARILYN CORRAL) Scribe Documentation - Scribe Written by Maribel:: maribel Sandoval, 09/09/16, 1536 acting as scribe for :: Cyn <XIMENA PAGE - Last Filed: 09/09/16 15:26>
[2016-09-09 19:07] VITALS: BP 125/74
--- NOTE | 2016-09-09 21:11 | EKG REPORT ---
SEVERITY:- ABNORMAL ECG - SINUS RHYTHM NONSPECIFIC IVCD WITH LAD PROBABLE INFERIOR INFARCT, AGE INDETERMINATE ANTEROLATERAL INFARCT, AGE INDETERMINATE : Confirmed by: Maxwell Mendez MD 09-Sep-2016 21:10:57
== END 2016-09-09 19:06 | disposition home or self-care (01) ==
LOC: ER 12:44
DX: R55 Syncope and collapse (principal); R74.8 Abnormal levels of other serum enzymes; R51 Headache; M54.9 Dorsalgia, unspecified
CPT/HCPCS: 93005; 99285; 36415; 82553; 82550; 85025; 80053; 84484; 72050; 71010; 70450; 93010; L0120; A9270

== ENCOUNTER → 2016-10-22 | Outpatient (CLI) | payer MEDICARE, OTHER ==
[2016-10-22 13:15] LABS: ALANINE AMINOTRANSFERASE 116 U/L (21-72); ALBUMIN 3.9 g/dL (3.5-5.0); ALKALINE PHOSPHATASE 55 U/L (38-126); ANION GAP 11 (5-19); ASPARTATE AMINO TRANSFERASE 97 U/L (17-59); BILIRUBIN,DIRECT 0.5 mg/dL (0.0-0.4); BILIRUBIN,TOTAL 0.7 mg/dL (0.2-1.3); BLOOD UREA NITROGEN 13 mg/dL (7-20); CALCIUM 9.4 mg/dL (8.4-10.2); CARBON DIOXIDE 23 mmol/L (22-30); CHLORIDE 97 mmol/L (98-107); CREATININE RESULT 0.77 mg/dL (0.52-1.25); GLUCOSE 253 mg/dL (75-110); POTASSIUM 4.2 mmol/L (3.6-5.0); SODIUM 130.7 mmol/L (137-145); TOTAL PROTEIN 5.9 g/dL (6.3-8.2)
== END ==
LOC: OD 11:54
PROVIDERS: ATTEND Nurse Practitioner Psychiatric/Mental Health
DX: F41.1 Generalized anxiety disorder (principal)
CPT/HCPCS: 36415; 80053

== ENCOUNTER 2016-10-27 16:35 | Emergency (ER) | payer MEDICARE, OTHER ==
[2016-10-27] MEDS ORDERED: ONDANSETRON HCL INJ/PF 4 MG/2 ML SDV IV ONE ×3 (16:50→23:08)
--- NOTE | 2016-10-27 16:59 | ER Document Report ---
HPI - HPI Patient complains to provider of: Nausea, vomiting, diarrhea, abdominal pain Onset: Other - 3 days Pain Level: Denies Associated Symptoms: Diarrhea, Nausea, Vomiting Exacerbated by: Denies Relieved by: Denies Similar symptoms previously: No Recently seen / treated by doctor: No - ROS ROS Unobtainable: Yes ROS unobtainable due to patient's medical condition - CONSTITUTIONAL Constitutional: DENIES: Fever, Chills - CARDIOVASCULAR Cardiovascular: DENIES: Chest pain - GASTROINTESTINAL Gastrointestinal: REPORTS: Abdominal Pain, Nausea, Patient vomiting, Diarrhea - DERM Skin Color: Normal Past Medical History - General Information source: Patient - Social History Smoking Status: Never Smoker Chew tobacco use (# tins/day): No Frequency of alcohol use: None Drug Abuse: None Family History: CAD - Mother Patient has suicidal ideation: No Patient has homicidal ideation: No - Past Medical History Cardiac Medical History: Reports: Hx Coronary Artery Disease, Hx Heart Attack - BYPASS 05/2003, Hx Hypercholesterolemia, Hx Hypertension Pulmonary Medical History: Reports: Hx Bronchitis Denies: Hx Asthma, Hx COPD, Hx Pneumonia Neurological Medical History: Denies: Hx Cerebrovascular Accident, Hx Seizures Endocrine Medical History: Reports: Hx Diabetes Mellitus Type 2, Hx Hypothyroidism Renal/ Medical History: Reports: Hx Kidney Stones. Denies: Hx Peritoneal Dialysis GI Medical History: Reports: Hx Gastroesophageal Reflux Disease Past Surgical History: Reports: Hx Abdominal Surgery - gastric bypass, Hx Cardiac Surgery - BYPASS 2003, Hx Coronary Artery Bypass Graft, Hx Gastric Bypass Surgery, Hx Kidney (Renal Surgery) - lithotripsy, Hx Orthopedic Surgery - back; neck; right hand, Hx Pacemaker - Immunizations Immunizations up to date: Yes Hx Diphtheria, Pertussis, Tetanus Vaccination: Yes Hx Pneumococcal Vaccination: 03/03/13 Vertical Provider Document - CONSTITUTIONAL Agree With Documented VS: Yes Exam Limitations: No Limitations General Appearance: WD/WN, No Apparent Distress - INFECTION CONTROL TRAVEL OUTSIDE OF THE [place] IN LAST 30 DAYS: No - HEENT HEENT: Atraumatic, Normocephalic - NECK Neck: Normal Inspection - RESPIRATORY Respiratory: Breath Sounds Normal O2 Sat by Pulse Oximetry: 96 - CARDIOVASCULAR Cardiovascular: Regular Rate, Regular Rhythm - GI/ABDOMEN Gastrointestinal: Abdomen Soft, Abdomen Tender - Diffuse. negative: Abdominal Guarding, Abdominal Rebound - BACK Back: Normal Inspection - MUSCULOSKELETAL/EXTREMETIES Musculoskeletal/Extremeties: MAEW, FROM, Non-Tender - NEURO Level of Consciousness: Awake, Alert, Appropriate Motor/Sensory: No Motor Deficit, No Sensory Deficit - DERM Integumentary: Warm, Dry, No Rash Course - Re-evaluation Re-evalutation: 10/27/16 16:57 Patient will require further evaluation. He was moved to the treatment area in the back for further management. - Vital Signs Vital signs: Temp Pulse Resp BP Pulse Ox 97.7 F 79 16 121/74 96 10/27/16 16:38 10/27/16 16:38 10/27/16 16:38 10/27/16 16:38 10/27/16 16:38
[2016-10-27 17:26] LABS: APPEARANCE,URINE CLEAR; BILIRUBIN,URINE NEGATIVE (NEGATIVE); GLUCOSE, URINE 50 mg/dL (NEGATIVE); KETONES,URINE NEGATIVE (NEGATIVE); LEUKOCYTE ESTERASE,URINE NEGATIVE (NEGATIVE); NITRITE,URINE NEGATIVE (NEGATIVE); PROTEIN,URINE 30 mg/dL (NEGATIVE); URINE SPECIFIC GRAVITY 1.011; UROBILINOGEN,URINE NEGATIVE mg/dL (<2.0)
[2016-10-27 17:32] LABS: ABSOLUTE EOSINOPHILS # (AUTO) 0.1 10^3/uL (0.0-0.6); ABSOLUTE LYMPHOCYTES (AUTO) 1.9 10^3/uL (0.5-4.7); ABSOLUTE MONOCYTES (AUTO) 0.6 10^3/uL (0.1-1.4); ABSOLUTE NEUT (AUTO) 6.1 10^3/uL (1.7-8.2); BASOPHILS % (AUTO) 0.5 % (0-2); EOSINOPHILS % (AUTO) 0.8 % (0-6); HEMATOCRIT 39.3 % (37.9-51.0); HEMOGLOBIN 13.4 g/dL (13.5-17.0); HGB HCT DIFFERENCE 0.9; LYMPHOCYTES % (AUTO) 21.7 % (13-45); MEAN CORPUSCULAR HEMOGLOBIN 31.5 pg (27.0-33.4); MEAN CORPUSCULAR HGB CONC 34.1 g/dL (32.0-36.0); MEAN CORPUSCULAR VOLUME 92 fl (80-97); MONOCYTES % (AUTO) 7.3 % (3-13); RED BLOOD COUNT 4.25 10^6/uL (4.35-5.55); RED CELL DISTRIBUTION WIDTH 14.4 % (11.5-14.0); SEGMENTED NEUTROPHILS % (AUTO) 69.7 % (42-78); WHITE BLOOD COUNT 8.8 10^3/uL (4.0-10.5)
[2016-10-27] MEDS: NORMAL SALINE 1000 ML 1,000 ML IV PRN ×2 (17:33→23:14)
[2016-10-27 17:43] LABS: ALANINE AMINOTRANSFERASE 136 U/L (21-72); ALBUMIN 4.8 g/dL (3.5-5.0); ALKALINE PHOSPHATASE 65 U/L (38-126); ANION GAP 13 (5-19); ASPARTATE AMINO TRANSFERASE 80 U/L (17-59); BILIRUBIN,DIRECT 0.4 mg/dL (0.0-0.4); BILIRUBIN,TOTAL 0.8 mg/dL (0.2-1.3); BLOOD UREA NITROGEN 11 mg/dL (7-20); CARBON DIOXIDE 30 mmol/L (22-30); CHLORIDE 89 mmol/L (98-107); CREATININE RESULT 0.91 mg/dL (0.52-1.25); GLUCOSE 253 mg/dL (75-110); LIPASE 204.9 U/L (23-300); POTASSIUM 3.9 mmol/L (3.6-5.0); SODIUM 131.6 mmol/L (137-145)
--- NOTE | 2016-10-27 18:13 | ER Document Report ---
ED GI/ - General Mode of Arrival: Ambulatory Information source: Patient TRAVEL OUTSIDE OF THE [place] IN LAST 30 DAYS: No - HPI Patient complains to provider of: Abdominal pain Associated symptoms: Other - see narrative <ZAMZAM JESUS - Last Filed: 10/27/16 23:52> <TIFFANIE DAVIDSON - Last Filed: 10/28/16 00:42> - General Chief Complaint: Nausea/Vomiting/Diarrhea Stated Complaint: ABDOMINAL PAIN,NAUSEA,VOMITING Time Seen by Provider: 10/27/16 16:48 Notes: Patient is a 71-year-old male that presents to the emergency department today with complaints of lower abdominal pain of a 4 day duration. Patient had gastric bypass surgery 5 years ago. Patient states he had an episode of diarrhea today prior to arrival but it was "mucus". Patient states he is dizzy when he moves but it is relieved by sitting still. Patient denies any fevers or blood in stool or vomit. (ZAMZAM JESUS) - Related Data Allergies/Adverse Reactions: adhesive tape [Adhesive Tape] Allergy (Verified 10/27/16 16:38) Blisters, Rash iodine [Iodine] Allergy (Verified 10/27/16 16:38) RASH, ITCH latex [Latex] Allergy (Verified 10/27/16 16:38) RASH povidone-iodine [From Betadine] Allergy (Verified 10/27/16 16:38) Soap [From Betadine] Allergy (Verified 10/27/16 16:38) meperidine HCl [From Demerol] Adverse Reaction (Verified 10/27/16 16:38) CAN CAUSE ITCHING IN LARGE DOSES promethazine HCl [From Phenergan] Adverse Reaction (Verified 10/27/16 16:38) Qnntisq-Vtf-Eqp Reductase Inhibitor Adverse Reaction (Verified 10/27/16 16:38) elevated LFT's STEROIDS Adverse Reaction (Uncoded 10/27/16 16:38) WEAKNESS TO LEGS Past Medical History - General Information source: Patient - Social History Smoking Status: Never Smoker Chew tobacco use (# tins/day): No Frequency of alcohol use: None Drug Abuse: None Family History: CAD - Mother Patient has suicidal ideation: No Patient has homicidal ideation: No - Past Medical History Cardiac Medical History: Reports: Hx Coronary Artery Disease, Hx Heart Attack - BYPASS 05/2003, Hx Hypercholesterolemia, Hx Hypertension Pulmonary Medical History: Reports: Hx Bronchitis Denies: Hx Asthma, Hx COPD, Hx Pneumonia Neurological Medical History: Denies: Hx Cerebrovascular Accident, Hx Seizures Endocrine Medical History: Reports: Hx Diabetes Mellitus Type 2, Hx Hypothyroidism Renal/ Medical History: Reports: Hx Kidney Stones. Denies: Hx Peritoneal Dialysis GI Medical History: Reports: Hx Gastroesophageal Reflux Disease Past Surgical History: Reports: Hx Abdominal Surgery - gastric bypass, Hx Cardiac Surgery - BYPASS 2003, Hx Coronary Artery Bypass Graft, Hx Gastric Bypass Surgery, Hx Kidney (Renal Surgery) - lithotripsy, Hx Orthopedic Surgery - back; neck; right hand, Hx Pacemaker - Immunizations Immunizations up to date: Yes Hx Diphtheria, Pertussis, Tetanus Vaccination: Yes Hx Pneumococcal Vaccination: 03/03/13 <ZAMZAM JESUS - Last Filed: 10/27/16 23:52> Review of Systems - Review of Systems Constitutional: denies: Fever EENT: No symptoms reported Cardiovascular: See HPI, Dizziness Respiratory: No symptoms reported Gastrointestinal: See HPI, Abdominal pain, Diarrhea, Nausea, Vomiting. denies: Blood streaked bowels Genitourinary: No symptoms reported Male Genitourinary: No symptoms reported Musculoskeletal: No symptoms reported Skin: No symptoms reported Hematologic/Lymphatic: No symptoms reported Neurological/Psychological: No symptoms reported -: Yes All other systems reviewed and negative <ZAMZAM JESUS - Last Filed: 10/27/16 23:52> Physical Exam <ZAMZAM JESUS - Last Filed: 10/27/16 23:52> <TIFFANIE DAVIDSON - Last Filed: 10/28/16 00:42> - Vital signs Vitals: Temp Pulse Resp BP Pulse Ox 97.7 F 79 16 121/74 96 10/27/16 16:38 10/27/16 16:38 10/27/16 16:38 10/27/16 16:38 10/27/16 16:38 - Notes Notes: PHYSICAL EXAM GENERAL: Alert, interacts well. Appears mildly uncomfortable secondary to pain. HEAD: Normocephalic, atraumatic. EYES: Pupils equal, round, and reactive to light. Extraocular movements intact. ENT: Oral mucosa moist, tongue midline. NECK: Full range of motion. Supple. Trachea midline. LUNGS: Clear to auscultation bilaterally, no wheezes, rales, or rhonchi. No respiratory distress. HEART: Regular rate and rhythm. No murmurs, gallops, or rubs. ABDOMEN: Soft, left lower quadrant tenderness with palpation. Non-distended. Bowel sounds present in all 4 quadrants. EXTREMITIES: Moves all 4 extremities spontaneously. No edema, radial and dorsalis pedis pulses 2/4 bilaterally. No cyanosis. NEUROLOGICAL: Alert and oriented x3. Normal speech. PSYCH: Normal affect, normal mood. SKIN: Warm, dry, normal turgor. No rashes or lesions noted. (ZAMZAM JESUS) Course - Laboratory Result Diagrams: 10/27/16 17:20 10/27/16 17:20 <ZAMZAM JESUS - Last Filed: 10/27/16 23:52> - Laboratory Result Diagrams: 10/27/16 17:20 10/27/16 17:20 <TIFFANIE DAVIDSON - Last Filed: 10/28/16 00:42> - Re-evaluation Re-evalutation: 10/27/16 21:46 CBC does not show any leukocytosis, there is mild anemia with hemoglobin 13.4, there is no left shift, CMP shows slightly low sodium 131.6, low chloride 89, glucose elevated to 53, slightly elevated AST and ALT, lipase normal, urinalysis shows small blood, no leukocyte esterase. Presentation is suspicious for diverticulitis, abdominal and pelvis CT shows moderate wall thickening in the sigmoid colon with heavy diverticulosis with mild inflammatory changes in the pelvic fat, consider follow-up CT scan within a few weeks of the conclusion of treatment to assess for resolution alternatively consider colonoscopy. Patient will be treated with Cipro and Flagyl, patient had similar symptoms and similar pain several weeks ago, Cipro and Flagyl worked well with no complications. So long as patient's pain and nausea is controlled and he is able to tolerate oral intake he will be discharged home. 10/28/16 00:42 Feeling better, tolerated orals well, discharged home. (TIFFANIE DAVIDSON) - Vital Signs Vital signs: Temp Pulse Resp BP Pulse Ox 97.7 F 68 20 121/56 L 93 10/27/16 16:40 10/28/16 00:01 10/28/16 00:01 10/28/16 00:01 10/28/16 00:01 - Laboratory Laboratory results interpreted by me: 08/10/27/16 10/27/16 17:00 17:20 17:20 RBC 4.25 L Hgb 13.4 L RDW 14.4 H Sodium 131.6 L Chloride 89 L Glucose 253 H AST 80 H ALT 136 H Urine Protein 30 H Urine Glucose (UA) 50 H Urine Blood SMALL H Discharge <ZAMZAM JESUS - Last Filed: 10/27/16 23:52> <TIFFANIE DAVIDSON - Last Filed: 10/28/16 00:42> - Discharge Clinical Impression: Diverticulitis large intestine w/o perforation or abscess w/o bleeding, Hyponatremia Condition: Stable Disposition: HOME, SELF-CARE Instructions: Diverticulitis ([facility]) Additional Instructions: Today your CAT scan showed signs of infection around your diverticulosis, this is consistent with diverticulitis. The radiologist suggests that you have your CAT scan repeated in a few weeks after you finish your antibiotics to make sure the signs of infection have resolved. Please follow-up with your primary care physician as well as your human resources operations director who performed your colonoscopy. Prescriptions: Ciprofloxacin HCl [Cipro 500 mg Tablet] 500 mg PO BID #14 tablet Metoclopramide HCl [Reglan] 10 mg PO ACHSP PRN #20 tablet PRN Reason: Metronidazole [Flagyl 500 mg Tablet] 500 mg PO Q6H #28 tablet Oxycodone HCl/Acetaminophen [Percocet 5-325 mg Tablet] 1 - 2 tab PO Q4H PRN #15 tablet PRN Reason: Referrals: LAKESHA VILLA MD [Primary Care Provider] - Follow up as needed Scribe Attestation: 10/28/16 00:42 I personally performed the services described in the documentation, reviewed and edited the documentation which was dictated to the scribe in my presence, and it accurately records my words and actions. (TIFFANIE DAVIDSON) Scribe Documentation - Scribe Written by Serena:: Serena Ayoub, 10/27/2016 2322 acting as scribe for :: Gretta <ZAMZAM JESUS - Last Filed: 10/27/16 23:52>
--- NOTE | 2016-10-27 21:10 | RADIOLOGY REPORT (SQ) ---
EXAM DESCRIPTION: CT ABD/PELVIS ORAL ONLY COMPLETED DATE/TIME: 10/27/2016 8:35 pm REASON FOR STUDY: abd pain, S/P gastric bypass COMPARISON: None. TECHNIQUE: CT scan of the abdomen and pelvis performed without intravenous or oral contrast. Images reviewed with lung, soft tissue, and bone windows. Reconstructed coronal and sagittal MPR images revi ewed. All images stored on PACS. All CT scanners at this facility use dose modulation, iterative reconstruction, and/or weight based d osing when appropriate to reduce radiation dose to as low as reasonably achievable (ALARA). [facility]: Dose Right [facility]: CareDose [facility]: Dose Right [facility]: Teradose 4D [facility]: [email or web address] RADIATION DOSE: Up-to-date CT equipment and radiation dose reduction techniques were employed. CTDIv ol: 14.6 mGy. DLP: 894 mGy-cm.mGy. LIMITATIONS: None. FINDINGS: LOWER CHEST: No significant findings. No nodules or infiltrates. NON-CONTRASTED LIVER, SPLEEN, ADRENALS: Evaluation limited by lack of IV contrast. No identified sign ificant masses. PANCREAS: No masses. No peripancreatic inflammatory changes. GALLBLADDER: No identified stones by CT criteria. No inflammatory changes to suggest cholecystitis. RIGHT KIDNEY AND URETER: No suspicious masses. Assessment limited by lack of IV contrast. No signif icant calcifications. No hydronephrosis or hydroureter. LEFT KIDNEY AND URETER: No suspicious masses. Assessment limited by lack of IV contrast. No signifi cant calcifications. No hydronephrosis or hydroureter. AORTA AND RETROPERITONEUM: No aneurysm. No retroperitoneal masses or adenopathy. BOWEL AND PERITONEAL CAVITY: There is moderate wall thickening in the sigmoid colon with heavy divert iculosis with mild inflammatory changes in the pelvic fat. No free fluid. APPENDIX: Normal. PELVIS, BLADDER, AND ABDOMINAL WALL:No abnormal masses. No free fluid. Bladder shows mild wall thicke chance. BONES: No significant findings. OTHER: No other significant finding. IMPRESSION: There is moderate wall thickening in the sigmoid colon with heavy diverticulosis with mi ld inflammatory changes in the pelvic fat. Consider follow-up CT scan within a few weeks of the conc lusion of treatment to assess for resolution. Alternatively consider colonoscopy. TECHNICAL DOCUMENTATION: JOB ID: [id number] Quality ID # [id number]: Final reports with documentation of one or more dose reduction techniques (e.g., Au tomated exposure control, adjustment of the mA and/or kV according to patient size, use of iterative reconstruction technique) 2010 [employer]- All Rights Reserved
[2016-10-27] MEDS ORDERED: HYDROMORPHONE HCL INJ/PF 2 MG/ML AMPULE IV ONE (21:34)
[2016-10-27] MEDS ORDERED: CIPROFLOXACIN 400 MG/D5W RTU 400 MG/200 ML RTUPB IV ONE (21:36)
[2016-10-27] MEDS ORDERED: METRONIDAZOLE 500 MG/NS RTU 100 ML IV ONE (21:36)
[2016-10-27] MEDS ORDERED: OXYCODONE-ACETAMINOPHEN 5-325 MG TABLET PO ONE (21:46)
[2016-10-28 00:15] VITALS: BP 121/56
== END 2016-10-28 00:04 | disposition home or self-care (01) ==
LOC: ER 16:35
DX: K57.32 Diverticulitis of large intestine without perforation or abscess without bleeding (principal); E87.1 Hypo-osmolality and hyponatremia; R11.2 Nausea with vomiting, unspecified; R19.7 Diarrhea, unspecified; R10.9 Unspecified abdominal pain; Z91.040 Latex allergy status; Z98.84 Bariatric surgery status
CPT/HCPCS: 96376; 99284; 96361; 96375; 96365; 96368; 36415; 83690; 85025; 80053; 81001; 74176; A9270; J1170; J2405; J7030; J0744

== ENCOUNTER 2016-10-29 16:46 | Inpatient (IN) | payer MEDICARE, OTHER ==
[2016-10-29] MEDS ORDERED: ONDANSETRON HCL INJ/PF 4 MG/2 ML SDV IV ONE ×2 (17:26→19:24)
[2016-10-29] MEDS ORDERED: NORMAL SALINE 1000 ML 1,000 ML IV PRN ×2 (17:26→22:55)
--- NOTE | 2016-10-29 17:27 | ER Document Report ---
ED Medical Screen (RME) - General Chief Complaint: Abdominal Pain Stated Complaint: NOT EATING, WEAKNESS, NAUSEA Time Seen by Provider: 10/29/16 17:25 Notes: Per patient and family he was recently seen here, approximately 3 days ago, and diagnosed with diverticulitis. Patient states since being discharged he has been taking oral antibiotics but continues to have severe nausea and is unable to eat. He also states that his pain is no better. He states that he discussed this with his primary care doctor today,dr doe. He says his primary care doctor referred him to the emergency department. TRAVEL OUTSIDE OF THE [place] IN LAST 30 DAYS: No - Related Data Allergies/Adverse Reactions: adhesive tape [Adhesive Tape] Allergy (Verified 10/29/16 16:53) Blisters, Rash iodine [Iodine] Allergy (Verified 10/29/16 16:53) RASH, ITCH latex [Latex] Allergy (Verified 10/29/16 16:53) RASH povidone-iodine [From Betadine] Allergy (Verified 10/29/16 16:53) Soap [From Betadine] Allergy (Verified 10/29/16 16:53) meperidine HCl [From Demerol] Adverse Reaction (Verified 10/29/16 16:53) CAN CAUSE ITCHING IN LARGE DOSES promethazine HCl [From Phenergan] Adverse Reaction (Verified 10/29/16 16:53) Wsgxvkx-Xeh-Dzt Reductase Inhibitor Adverse Reaction (Verified 10/29/16 16:53) elevated LFT's STEROIDS Adverse Reaction (Uncoded 10/29/16 16:53) WEAKNESS TO LEGS Past Medical History - Past Medical History Cardiac Medical History: Reports: Hx Coronary Artery Disease, Hx Heart Attack - BYPASS 05/2003, Hx Hypercholesterolemia, Hx Hypertension Pulmonary Medical History: Reports: Hx Bronchitis Denies: Hx Asthma, Hx COPD, Hx Pneumonia Neurological Medical History: Denies: Hx Cerebrovascular Accident, Hx Seizures Endocrine Medical History: Reports: Hx Diabetes Mellitus Type 2, Hx Hypothyroidism Renal/ Medical History: Reports: Hx Kidney Stones. Denies: Hx Peritoneal Dialysis GI Medical History: Reports: Hx Gastroesophageal Reflux Disease Past Surgical History: Reports: Hx Abdominal Surgery - gastric bypass, Hx Cardiac Surgery - BYPASS 2003, Hx Coronary Artery Bypass Graft, Hx Gastric Bypass Surgery, Hx Kidney (Renal Surgery) - lithotripsy, Hx Orthopedic Surgery - back; neck; right hand, Hx Pacemaker - Immunizations Immunizations up to date: Yes Hx Diphtheria, Pertussis, Tetanus Vaccination: Yes Physical Exam - Vital signs Vitals: Temp Pulse Resp BP Pulse Ox 97.8 F 82 20 123/76 97 10/29/16 16:53 10/29/16 16:53 10/29/16 16:53 10/29/16 16:53 10/29/16 16:53 Course - Vital Signs Vital signs: Temp Pulse Resp BP Pulse Ox 97.8 F 82 20 123/76 97 10/29/16 16:53 10/29/16 16:53 10/29/16 16:53 10/29/16 16:53 10/29/16 16:53
[2016-10-29 19:06] LABS: ABSOLUTE LYMPHOCYTES (AUTO) 1.4 10^3/uL (0.5-4.7); ABSOLUTE MONOCYTES (AUTO) 0.7 10^3/uL (0.1-1.4); ABSOLUTE NEUT (AUTO) 7.6 10^3/uL (1.7-8.2); BASOPHILS % (AUTO) 0.3 % (0-2); EOSINOPHILS % (AUTO) 0.2 % (0-6); HEMATOCRIT 36.5 % (37.9-51.0); HEMOGLOBIN 12.6 g/dL (13.5-17.0); HGB HCT DIFFERENCE 1.3; MEAN CORPUSCULAR HEMOGLOBIN 31.6 pg (27.0-33.4); MEAN CORPUSCULAR HGB CONC 34.5 g/dL (32.0-36.0); MEAN CORPUSCULAR VOLUME 92 fl (80-97); MONOCYTES % (AUTO) 7.1 % (3-13); RED BLOOD COUNT 3.99 10^6/uL (4.35-5.55); RED CELL DISTRIBUTION WIDTH 14.3 % (11.5-14.0); SEGMENTED NEUTROPHILS % (AUTO) 78.4 % (42-78); WHITE BLOOD COUNT 9.8 10^3/uL (4.0-10.5)
[2016-10-29 19:10] LABS: ALANINE AMINOTRANSFERASE 44 U/L (21-72); ALBUMIN 4.9 g/dL (3.5-5.0); ALKALINE PHOSPHATASE 65 U/L (38-126); ANION GAP 18 (5-19); ASPARTATE AMINO TRANSFERASE 38 U/L (17-59); BILIRUBIN,DIRECT 0.5 mg/dL (0.0-0.4); BLOOD UREA NITROGEN 8 mg/dL (7-20); CALCIUM 9.6 mg/dL (8.4-10.2); CARBON DIOXIDE 26 mmol/L (22-30); CHLORIDE 83 mmol/L (98-107); CREATININE RESULT 0.91 mg/dL (0.52-1.25); GLUCOSE 250 mg/dL (75-110); POTASSIUM 3.7 mmol/L (3.6-5.0); SODIUM 127.3 mmol/L (137-145); TOTAL PROTEIN 6.7 g/dL (6.3-8.2)
[2016-10-29] MEDS ORDERED: HYDROMORPHONE HCL INJ/PF 2 MG/ML AMPULE IV ONE (19:24)
[2016-10-29] MEDS ORDERED: CIPROFLOXACIN 400 MG/D5W RTU 400 MG/200 ML RTUPB IV ONE (19:24)
[2016-10-29] MEDS ORDERED: METRONIDAZOLE 500 MG/NS RTU 100 ML IV ONE (19:24)
[2016-10-29] MEDS ORDERED: DEXTROSE 50%-WATER 25 GM/50 ML DISP.SYRIN IV PRN ×2 (19:34)
[2016-10-29] MEDS ORDERED: IPRATROPIUM/ALBUTEROL 0.5-2.5 MG/3 ML AMPUL NEB PRN (19:34)
[2016-10-29] MEDS ORDERED: DEXTROSE 40% GEL 15 GM TUBE PO PRN ×2 (19:34)
[2016-10-29] MEDS ORDERED: ACETAMINOPHEN 325 MG TABLET PO PRN (19:34)
[2016-10-29] MEDS ORDERED: GLUCAGON,HUMAN RECOMB 1 MG INJ IM PRN (19:34)
--- NOTE | 2016-10-29 19:37 | ER Document Report ---
ED General - General Chief Complaint: Abdominal Pain Stated Complaint: WEAKNESS, NAUSEA Time Seen by Provider: 10/29/16 17:25 TRAVEL OUTSIDE OF THE [place] IN LAST 30 DAYS: No - HPI Severity: Severe Pain Level: 5 Notes: 71-year-old male whom I saw 2 days ago for the same complaint returns complaining of continuing left lower quadrant and left upper quadrant abdominal pain as well as vomiting up his antibiotics since being discharged 2 days ago with a diagnosis of diverticulitis. His pain is not increasing but it is not decreasing, he states he is unable to tolerate his antibiotics or any food despite the pain and nausea medication. States that he talk to Dr. Nielson today and was told to come to the ER for IV antibiotics and possible admission. Denies any fever at home, denies any rectal bleeding. Does complain of some burning of his lips. - Related Data Allergies/Adverse Reactions: adhesive tape [Adhesive Tape] Allergy (Verified 10/29/16 16:53) Blisters, Rash iodine [Iodine] Allergy (Verified 10/29/16 16:53) RASH, ITCH latex [Latex] Allergy (Verified 10/29/16 16:53) RASH povidone-iodine [From Betadine] Allergy (Verified 10/29/16 16:53) Soap [From Betadine] Allergy (Verified 10/29/16 16:53) meperidine HCl [From Demerol] Adverse Reaction (Verified 10/29/16 16:53) CAN CAUSE ITCHING IN LARGE DOSES promethazine HCl [From Phenergan] Adverse Reaction (Verified 10/29/16 16:53) Qkbbjvn-Egw-Yzh Reductase Inhibitor Adverse Reaction (Verified 10/29/16 16:53) elevated LFT's STEROIDS Adverse Reaction (Uncoded 10/29/16 16:53) WEAKNESS TO LEGS Past Medical History - General Information source: Patient, Relative - Social History Smoking Status: Never Smoker Chew tobacco use (# tins/day): No Frequency of alcohol use: None Drug Abuse: None Lives with: Spouse/Significant other Family History: CAD - Mother Patient has suicidal ideation: No Patient has homicidal ideation: No - Past Medical History Cardiac Medical History: Reports: Hx Coronary Artery Disease, Hx Heart Attack - BYPASS 05/2003, Hx Hypercholesterolemia, Hx Hypertension Pulmonary Medical History: Reports: Hx Bronchitis Denies: Hx Asthma, Hx COPD, Hx Pneumonia Neurological Medical History: Denies: Hx Cerebrovascular Accident, Hx Seizures Endocrine Medical History: Reports: Hx Diabetes Mellitus Type 2, Hx Hypothyroidism Renal/ Medical History: Reports: Hx Kidney Stones. Denies: Hx Peritoneal Dialysis GI Medical History: Reports: Hx Gastroesophageal Reflux Disease Past Surgical History: Reports: Hx Abdominal Surgery - gastric bypass, Hx Cardiac Surgery - BYPASS 2003, Hx Coronary Artery Bypass Graft, Hx Gastric Bypass Surgery, Hx Kidney (Renal Surgery) - lithotripsy, Hx Orthopedic Surgery - back; neck; right hand, Hx Pacemaker - Immunizations Immunizations up to date: Yes Hx Diphtheria, Pertussis, Tetanus Vaccination: Yes Hx Pneumococcal Vaccination: 03/03/13 Review of Systems - Review of Systems Constitutional: No symptoms reported EENT: No symptoms reported Cardiovascular: No symptoms reported Gastrointestinal: Abdominal pain, Nausea, Vomiting, Poor appetite, Poor fluid intake. denies: Blood streaked bowels, Blood in vomit, Rectal bleeding -: Yes All other systems reviewed and negative Physical Exam - Vital signs Vitals: Temp Pulse Resp BP Pulse Ox 97.8 F 82 20 123/76 97 10/29/16 16:53 10/29/16 16:53 10/29/16 16:53 10/29/16 16:53 10/29/16 16:53 Interpretation: Normal - Notes Notes: GENERAL: Alert, interacts well. Appears uncomfortable. HEAD: Normocephalic, atraumatic EYES: Pupils equal, round and reactive to light, extraocular movements intact. ENT: Oral mucosa moist, tongue midline. NECK: Full range of motion, supple, trachea midline. LUNGS: Clear to auscultation bilaterally, no wheezes, rales or rhonchi, no respiratory distress. HEART: Regular rate and rhythm, no murmurs, gallops, rubs. ABDOMEN: Soft, moderate LLQ and LUQ tenderness to palpation, small guarding, no rigidity or rebounding, nondistended, bowel sounds present in all 4 quadrants. EXTREMITIES: Moves all 4 extremities spontaneously, no edema, radial and dorsalis pedis pulses 2/4 bilaterally. No cyanosis. NEUROLOGICAL: Alert and oriented x3, normal speech. PSYCH: Normal mood, normal affect. SKIN: Warm, Dry, normal turgor, no rashes or lesions noted. Course - Re-evaluation Re-evalutation: 10/29/16 19:36 CBC still shows no leukocytosis, segs have increased, anemia has worsened slightly with a hemoglobin 12.6, chemistries show a worsening of his hyponatremia to 127.3, glucose continues to be elevated, LFTs are stable, lipase is normal, re-reviewing CAT scan previously there were signs of diverticulitis. Patient has had trial of oral antibiotics as an outpatient but continues to have pain and nausea that is uncontrolled which makes him unable to keep down his antibiotics. Patient already discussed the case with Dr. Nielson who recommended that he come to the emergency department for IV antibiotics. Discussed case with Dr. Street who agrees to place the patient on his service on a medical floor in observation status for continued vomiting and inability to tolerate oral antibiotics for his diverticulitis. - Vital Signs Vital signs: Temp Pulse Resp BP Pulse Ox 97.8 F 82 20 123/76 97 10/29/16 16:53 10/29/16 16:53 10/29/16 16:53 10/29/16 16:53 10/29/16 16:53 - Laboratory Result Diagrams: 10/29/16 18:50 10/29/16 18:32 Laboratory results interpreted by me: 10/29/16 10/29/16 18:32 18:50 RBC 3.99 L Hgb 12.6 L Hct 36.5 L RDW 14.3 H Seg Neutrophils % 78.4 H Sodium 127.3 L Chloride 83 L Glucose 250 H Direct Bilirubin 0.5 H Discharge - Discharge Clinical Impression: Diverticulitis large intestine w/o perforation or abscess w/o bleeding Condition: Stable Disposition: ADMITTED OBSERVATION Admitting Provider: Shamika Street Unit Admitted: Medical Floor
[2016-10-29] MEDS ORDERED: ASPIRIN 81 MG TABLET, ENT COATED PO PRN (19:41)
--- NOTE | 2016-10-29 20:09 | RADIOLOGY REPORT (SQ) ---
EXAM DESCRIPTION: ABDOMEN 2 VIEWS COMPLETED DATE/TIME: 10/29/2016 7:51 pm REASON FOR STUDY: llq pain COMPARISON: None. NUMBER OF VIEWS: Two views. TECHNIQUE: Supine and erect/decubitus radiographic images of the abdomen acquired. LIMITATIONS: None. FINDINGS: FREE AIR: None. No abnormal gas collections. LUNG BASES: Clear. BOWEL GAS PATTERN: Nonobstructive pattern. No dilated loops or air fluid levels. CALCIFICATIONS: No suspicious calcifications. SOFT TISSUES: No gross mass or suggestion of organomegaly. HARDWARE: Cholecystectomy clips. BONES: No acute fracture. No worrisome bone lesions. OTHER: No other significant finding. IMPRESSION: Nonobstructive bowel gas pattern. TECHNICAL DOCUMENTATION: JOB ID: [id number] [employer]- All Rights Reserved
[2016-10-29 20:36] LABS: CREATINE KINASE MB 0.85 ng/mL (<4.55)
[2016-10-29 20:37] LABS: TROPONIN I < 0.012 ng/mL
[2016-10-29 21:44] LABS: APPEARANCE,URINE CLEAR; BILIRUBIN,URINE NEGATIVE (NEGATIVE); GLUCOSE, URINE 150 mg/dL (NEGATIVE); KETONES,URINE 20 mg/dL (NEGATIVE); LEUKOCYTE ESTERASE,URINE NEGATIVE (NEGATIVE); NITRITE,URINE NEGATIVE (NEGATIVE); PROTEIN,URINE 30 mg/dL (NEGATIVE); URINE SPECIFIC GRAVITY 1.014; UROBILINOGEN,URINE NEGATIVE mg/dL (<2.0)
[2016-10-29] MEDS ORDERED: (PENDING PHARMACY ID) (Buspirone Hcl [Buspar 15 Mg Tablet] 1 TAB) PO SCH (22:00)
[2016-10-29] MEDS: BUSPIRONE HCL 10 MG TABLET PO SCH (22:59)
[2016-10-29] MEDS: CARVEDILOL 6.25 MG TABLET PO SCH (22:59)
[2016-10-29] MEDS: HEPARIN SOD (PORCINE) 5,000 UNIT/ML 1 ML SYRINGE SUBCUT SCH (23:00)
[2016-10-29] MEDS: CIPROFLOXACIN 400 MG/D5W RTU 400 MG/200 ML RTUPB IV SCH (23:00)
[2016-10-30] MEDS: METRONIDAZOLE 500 MG TABLET PO SCH ×3 (00:35→11:37)
--- NOTE | 2016-10-30 04:17 | PDOC H&P ---
History of Present Illness Admission Date/PCP: 10/29/16 19:34 Patient complains of: Left lower quadrant abdominal pain and nausea History of Present Illness: TATA RAYGOZA is a 71 year old male with a past medical history of coronary artery disease, permanent pacemaker, diabetes, obstructive sleep apnea, diverticulitis, parkinsonism, anxiety with panic,and dementia. Patient been in his usual state of health until approximately 72 hours prior to presentation developing abdominal pain. He was seen in the emergency room diagnosed with diverticulitis without abscess by CT he was placed on Cipro and Flagyl and discharged home however despite compliance with medication and a clear liquid diet he has persistent nausea with vomiting intolerant of IV antibiotics and residual left-sided pain. He is referred to the hospitalist for admission for failure of outpatient treatment. Patient otherwise denies changes in medications, blood in vomitus or bowel movement. Past Medical History Cardiac Medical History: Reports: Coronary Artery Disease, Myocardial Infarction - BYPASS 05/2003, Hyperlipidema, Hypertension Pulmonary Medical History: Reports: Bronchitis Denies: Asthma, Chronic Obstructive Pulmonary Disease (COPD), Pneumonia Neurological Medical History: Denies: Seizures Endocrine Medical History: Reports: Diabetes Mellitus Type 2, Hypothyroidism GI Medical History: Reports: Gastroesophageal Reflux Disease, Other - Diverticulitis Psychiatric Medical History: Reports: Dementia, General Anxiety Disorder Hematology: Denies: Anemia Past Surgical History Past Surgical History: Reports: Coronary Artery Bypass Graft, Gastric Bypass Surgery, Orthopedic Surgery - back; neck; right hand, Pacemaker Social History Information Source: Patient, Relative, Emergency Med Personnel, [facility] Records Lives with: Spouse/Significant other Smoking Status: Never Smoker Frequency of Alcohol Use: None Hx Recreational Drug Use: No Hx Prescription Drug Abuse: No - Advance Directive Resuscitation Status: Full Code Family History Family History: CAD - Mother Parental Family History Reviewed: Yes Children Family History Reviewed: Yes Sibling(s) Family History Reviewed.: Yes Medication/Allergy Home Medications: Allopurinol [Zyloprim 300 mg Tablet] 300 mg PO DAILY 08/01/14 Aspirin [Aspirin EC] 81 mg PO DAILY PRN 08/01/14 Buspirone HCl [Buspar 15 mg Tablet] 1 tab PO ACHS 08/01/14 Carvedilol [Coreg 6.25 mg Tablet] 1 tab PO BID 08/01/14 Docusate Sodium [Colace 100 mg Capsule] 100 mg PO DAILY 08/01/14 Furosemide [Lasix 40 mg Tablet] 40 mg PO QAM 08/01/14 Gabapentin Enacarbil [Horizant] 600 mg PO DAILY 08/01/14 Glimepiride [Amaryl 1 mg Tablet] 2 mg PO QAM 08/01/14 Hydrocodone/Acetaminophen [[place] 5-325 mg Tablet] 1 tab PO Q4H 08/01/14 Isosorbide Mononitrate [Imdur 60 mg Tablet.er] 60 mg PO DAILY 08/01/14 Lorazepam [Ativan 1 mg Tablet] 1 tab PO BID 08/01/14 Metformin HCl [Glucophage] 500 mg PO BID 08/01/14 Albuterol Sulfate [Proair HFA] 2 inhaler IH PRN PRN 02/12/16 Cholecalciferol (Vitamin D3) [Vitamin D3 400 Unit Tablet] 400 unit PO DAILY 02/15 Donepezil HCl 10 mg PO DAILY 02/12/16 Doxepin HCl [Sinequan 25 mg Capsule] 25 mg PO DAILY 02/12/16 Gabapentin Enacarbil [Horizant] 600 mg PO DAILY 02/12/16 Liothyronine Sodium [Cytomel] 5 mcg PO DAILY 02/12/16 Olopatadine HCl [Pataday] 2.5 drop BTH_EYE DAILY 02/12/16 Ondansetron [Ondansetron Odt] 8 mg PO PRN PRN 02/12/16 Rizatriptan Benzoate [Maxalt] 5 mg PO PRN PRN 02/12/16 Zaleplon [Sonata] 10 mg PO DAILY 02/12/16 Pantoprazole Sodium [Protonix] 40 mg PO BID #60 tablet. 02/13/16 Ciprofloxacin HCl [Cipro 500 mg Tablet] 500 mg PO BID #14 tablet 10/27/16 Metoclopramide HCl [Reglan] 10 mg PO ACHSP PRN #20 tablet 10/27/16 Metronidazole [Flagyl 500 mg Tablet] 500 mg PO Q6H #28 tablet 10/27/16 Oxycodone HCl/Acetaminophen [Percocet 5-325 mg Tablet] 1 - 2 tab PO Q4H PRN #15 tablet 10/27/16 Allergies/Adverse Reactions: adhesive tape [Adhesive Tape] Allergy (Verified 10/29/16 16:53) Blisters, Rash iodine [Iodine] Allergy (Verified 10/29/16 16:53) RASH, ITCH latex [Latex] Allergy (Verified 10/29/16 16:53) RASH povidone-iodine [From Betadine] Allergy (Verified 10/29/16 16:53) Soap [From Betadine] Allergy (Verified 10/29/16 16:53) meperidine HCl [From Demerol] Adverse Reaction (Verified 10/29/16 16:53) CAN CAUSE ITCHING IN LARGE DOSES promethazine HCl [From Phenergan] Adverse Reaction (Verified 10/29/16 16:53) Cyiuowu-Dwv-Syg Reductase Inhibitor Adverse Reaction (Verified 10/29/16 16:53) elevated LFT's STEROIDS Adverse Reaction (Uncoded 10/29/16 16:53) WEAKNESS TO LEGS Review of Systems Constitutional: PRESENT: anorexia, chills, fatigue, fever(s), weakness Eyes: ABSENT: visual disturbances Ears: ABSENT: hearing changes Cardiovascular: ABSENT: chest pain, dyspnea on exertion, edema, orthropnea, palpitations Respiratory: ABSENT: cough, hemoptysis Gastrointestinal: PRESENT: abdominal pain, bloating, diarrhea, nausea, vomiting. ABSENT: constipation, dysphagia, heartburn, hematemesis, hematochezia Genitourinary: ABSENT: dysuria, hematuria Musculoskeletal: ABSENT: joint swelling Integumentary: ABSENT: rash, wounds Neurological: ABSENT: abnormal gait, abnormal speech, confusion, dizziness, focal weakness, syncope Psychiatric: ABSENT: anxiety, depression, homidical ideation, suicidal ideation Endocrine: ABSENT: cold intolerance, heat intolerance, polydipsia, polyuria Hematologic/Lymphatic: ABSENT: easy bleeding, easy bruising Physical Exam Vital Signs: Temp Pulse Resp BP Pulse Ox 97.8 F 74 16 147/76 H 100 10/30/16 01:55 10/30/16 01:55 10/30/16 01:55 10/30/16 01:55 10/30/16 01:55 Intake & Output 10/28/16 10/29/16 10/30/16 11:59 11:59 11:59 Weight 87.9 kg General appearance: PRESENT: cooperative, mild distress Head exam: PRESENT: atraumatic, normocephalic Eye exam: PRESENT: conjunctiva pink, EOMI, PERRLA. ABSENT: scleral icterus Ear exam: PRESENT: normal external ear exam Mouth exam: PRESENT: moist, tongue midline Neck exam: ABSENT: carotid bruit, JVD, lymphadenopathy, thyromegaly Respiratory exam: PRESENT: clear to auscultation stewart. ABSENT: rales, rhonchi, wheezes Cardiovascular exam: PRESENT: RRR. ABSENT: diastolic murmur, rubs, systolic murmur Pulses: PRESENT: normal dorsalis pedis pul Vascular exam: PRESENT: normal capillary refill GI/Abdominal exam: PRESENT: hyperactive bowel sounds, soft, tenderness. ABSENT : ascites, diminished bowel sounds, distended, firm, guarding, hernia, Rodriguez's sign, normal bowel sounds, organolmegaly, rebound, rigid Rectal exam: PRESENT: deferred Extremities exam: PRESENT: full ROM. ABSENT: calf tenderness, clubbing, pedal edema Neurological exam: PRESENT: alert, awake, oriented to person, oriented to place , oriented to time, oriented to situation, CN II-XII grossly intact. ABSENT: motor sensory deficit Psychiatric exam: PRESENT: anxious Skin exam: PRESENT: dry, intact, warm. ABSENT: cyanosis, rash Results Laboratory Results: 10/29/16 21:10 Urine Color YELLOW Urine Appearance CLEAR Urine pH 5.0 Ur Specific [place] 1.014 Urine Protein 30 H Urine Glucose (UA) 150 H Urine Ketones 20 H Urine Blood SMALL H Urine Nitrite NEGATIVE Ur Leukocyte Esterase NEGATIVE Urine WBC (Auto) 0 Urine RBC (Auto) 1 10/29/16 10/29/16 19:55 19:55 Creatine Kinase 39 L CK-MB (CK-2) 0.85 Troponin I < 0.012 Impressions: Abdomen X-Ray 10/29/16 00:00 IMPRESSION: Nonobstructive bowel gas pattern. Assessment & Plan - Diagnosis (1) Diverticulitis large intestine w/o perforation or abscess w/o bleeding Is this a current diagnosis for this admission?: Yes Plan: Intolerance of p.o. antibiotics he is started on Levaquin and Flagyl IV. He is warned of expected GI symptoms with these medications. Otherwise symptomatic management. Clear liquid diet advancing as tolerated. Given recurrent flares of diverticulitis surgical consult is obtained. (2) Diabetes mellitus Qualifiers: Diabetes mellitus type: type 2 Diabetes mellitus complication status: with neurologic complications Diabetes mellitus complication detail: with polyneuropathy Diabetes mellitus intermediate teacher insulin use: unspecified intermediate teacher insulin use status Qualified Code(s): E11.42 - Type 2 diabetes mellitus with diabetic polyneuropathy Is this a current diagnosis for this admission?: Yes Plan: Discontinue metformin, sliding scale insulin (3) Hyponatremia Is this a current diagnosis for this admission?: Yes Plan: Appears euvolemic, likely secondary to medication, reevaluate and chemistry. (4) ADRIANNA (obstructive sleep apnea) Is this a current diagnosis for this admission?: Yes Plan: BiPAP - Time Time Spent: 50 to 70 Minutes - Inpatient Certification Medical Necessity: Need Close Monitoring Due to Risk of Patient Decompensation
[2016-10-30 05:03] LABS: ABSOLUTE LYMPHOCYTES (AUTO) 1.4 10^3/uL (0.5-4.7); ABSOLUTE MONOCYTES (AUTO) 0.8 10^3/uL (0.1-1.4); ABSOLUTE NEUT (AUTO) 8.2 10^3/uL (1.7-8.2); BASOPHILS % (AUTO) 0.3 % (0-2); EOSINOPHILS % (AUTO) 0.1 % (0-6); HEMATOCRIT 36.9 % (37.9-51.0); HEMOGLOBIN 12.6 g/dL (13.5-17.0); HGB HCT DIFFERENCE 0.9; LYMPHOCYTES % (AUTO) 13.6 % (13-45); MEAN CORPUSCULAR HEMOGLOBIN 31.2 pg (27.0-33.4); MEAN CORPUSCULAR HGB CONC 34.1 g/dL (32.0-36.0); MEAN CORPUSCULAR VOLUME 92 fl (80-97); MONOCYTES % (AUTO) 7.7 % (3-13); RED BLOOD COUNT 4.03 10^6/uL (4.35-5.55); RED CELL DISTRIBUTION WIDTH 14.3 % (11.5-14.0); SEGMENTED NEUTROPHILS % (AUTO) 78.3 % (42-78); WHITE BLOOD COUNT 10.4 10^3/uL (4.0-10.5)
[2016-10-30] MEDS: HEPARIN SOD (PORCINE) 5,000 UNIT/ML 1 ML SYRINGE SUBCUT SCH ×2 (05:14→14:32)
[2016-10-30 05:25] LABS: ANION GAP 17 (5-19); BLOOD UREA NITROGEN 7 mg/dL (7-20); CALCIUM 9.1 mg/dL (8.4-10.2); CARBON DIOXIDE 24 mmol/L (22-30); CHLORIDE 88 mmol/L (98-107); CREATININE RESULT 0.71 mg/dL (0.52-1.25); GLUCOSE 214 mg/dL (75-110); POTASSIUM 3.3 mmol/L (3.6-5.0); SODIUM 129.3 mmol/L (137-145)
[2016-10-30] MEDS: INSULIN LISPRO 100 UNIT/ML 3 ML VIAL SUBCUT PRN ×2 (06:31→11:37)
[2016-10-30] MEDS: BUSPIRONE HCL 10 MG TABLET PO SCH ×2 (08:17→11:37)
[2016-10-30] MEDS ORDERED: POTASSIUM CHLORIDE 10 MEQ TABLET.SA PO ONE (09:39)
[2016-10-30] MEDS ORDERED: HYDROMORPHONE HCL INJ/PF 2 MG/ML AMPULE IV PRN ×2 (09:40→09:43)
[2016-10-30] MEDS ORDERED: ONDANSETRON HCL INJ/PF 4 MG/2 ML SDV IV PRN (09:40)
[2016-10-30] MEDS ORDERED: CARVEDILOL 6.25 MG TABLET PO SCH (10:00)
[2016-10-30] MEDS ORDERED: DOCUSATE SODIUM 100 MG CAPSULE PO SCH (10:00)
[2016-10-30] MEDS ORDERED: LORAZEPAM 1 MG TABLET PO SCH (10:00)
[2016-10-30] MEDS: CIPROFLOXACIN 400 MG/D5W RTU 400 MG/200 ML RTUPB IV SCH (10:33)
[2016-10-30] MEDS: CARVEDILOL 6.25 MG TABLET PO SCH (10:34)
--- NOTE | 2016-10-30 11:56 | EKG REPORT ---
SEVERITY:- ABNORMAL ECG - VENTRICULAR-PACED COMPLEXES NONSPECIFIC IVCD WITH LAD LVH WITH SECONDARY REPOLARIZATION ABNORMALITY SHORT NON-SUSTAINED RUN OF VENTRICULAR TACHYCARDIA : Confirmed by: Lcuila Adam 30-Oct-2016 11:55:58
--- NOTE | 2016-10-30 11:59 | EKG REPORT ---
SEVERITY:- ABNORMAL ECG - SINUS RHYTHM WITH OCCASIONAL VENTRICULAR PACED BEATS, WITH RETROGRADE P WAVES, CANNOT RULE OUT SHORT PERIODS OF UNDERLYING ATRIAL FIBRILLATION, RECOMMEND REPEAT EKGS VENTRICULAR BIGEMINY VERSUS PACED BEATS NONSPECIFIC IVCD WITH LAD ANTERIOR INFARCT, POSSIBLY ACUTE : Confirmed by: Lucila Adam 30-Oct-2016 11:59:34
[2016-10-30] MEDS ORDERED: LORAZEPAM 1 MG TABLET PO PRN (12:00)
--- NOTE | 2016-10-30 12:01 | EKG REPORT ---
SEVERITY:- ABNORMAL ECG - SINUS TACHYCARDIA RUN OF VENTRICULAR PREMATURE COMPLEXES RIGHT BUNDLE BRANCH BLOCK : Confirmed by: Lucila Adam 30-Oct-2016 12:00:47
--- NOTE | 2016-10-30 12:13 | PDOC CONSULTATION ---
Consultation Consult Date: 10/30/16 Attending physician:: IRINA RODRIGUEZ Consult reason:: Sigmoid diverticulitis History of Present Illness Admission Date/PCP: 10/29/16 19:34 Patient complains of: Patient was in his usual state of health until approximately 72 hours prior to presentation developing abdominal pain. He was seen in the emergency room diagnosed with diverticulitis without abscess by CT he was placed on Cipro and Flagyl and discharged home however despite compliance with medication and a clear liquid diet he has persistent nausea with vomiting intolerant of IV antibiotics and residual left-sided pain. He is now on clear liquid diet and is w/o c/o of pain. Past Medical History Cardiac Medical History: Reports: Coronary Artery Disease, Myocardial Infarction - BYPASS 05/2003, Hyperlipidema, Hypertension Pulmonary Medical History: Reports: Bronchitis Denies: Asthma, Chronic Obstructive Pulmonary Disease (COPD), Pneumonia Neurological Medical History: Denies: Seizures Endocrine Medical History: Reports: Diabetes Mellitus Type 2, Hypothyroidism GI Medical History: Reports: Gastroesophageal Reflux Disease, Other - Diverticulitis Psychiatric Medical History: Reports: Dementia, General Anxiety Disorder Hematology: Denies: Anemia Past Surgical History Past Surgical History: Reports: Coronary Artery Bypass Graft, Gastric Bypass Surgery, Orthopedic Surgery - back; neck; right hand, Pacemaker Social History Lives with: Spouse/Significant other Smoking Status: Never Smoker Frequency of Alcohol Use: None Hx Recreational Drug Use: No Hx Prescription Drug Abuse: No - Advance Directive Resuscitation Status: Full Code Family History Family History: CAD - Mother Parental Family History Reviewed: No Children Family History Reviewed: No Sibling(s) Family History Reviewed.: No Medication/Allergy Home Medications: Albuterol Sulfate [Proair HFA] 2 puff IH Q4HP PRN 10/30/16 Allopurinol [Zyloprim 300 mg Tablet] 300 mg PO DAILY 10/30/16 Aspirin [Aspirin EC] 81 mg PO DAILY 10/30/16 Bupropion HCl [Wellbutrin Xl 300mg 24hr Tablet] 1 tab PO DAILY 10/30/16 Carbidopa/Levodopa [Sinemet 25-100 mg Tablet] 2 each PO Q8 10/30/16 Carvedilol [Coreg 6.25 mg Tablet] 6.25 mg PO DAILY 10/30/16 Cholecalciferol (Vitamin D3) [Vitamin D3 400 Unit Tablet] 400 unit PO DAILY Ciprofloxacin HCl [Cipro 500 mg Tablet] 500 mg PO BID 10/30/16 Citalopram Hydrobromide [Celexa 40 mg Tablet] 1 tab PO DAILY 10/30/16 Donepezil HCl [Aricept] 10 mg PO QHS 10/30/16 Furosemide [Lasix 40 mg Tablet] 40 mg PO QAM 10/30/16 Gabapentin Enacarbil [Horizant] 600 mg PO QHS 10/30/16 Isosorbide Mononitrate [Imdur 60 mg Tablet.er] 60 mg PO DAILY 10/30/16 Liothyronine Sodium [Cytomel] 10 mcg PO QHS 10/30/16 Lorazepam [Ativan 1 mg Tablet] 1 mg PO TIDP PRN 10/30/16 Metformin HCl [Glucophage 500 mg Tablet] 1,000 mg PO BIDBS 10/30/16 Metoclopramide HCl [Reglan 10 mg Tablet] 10 mg PO ACHSP PRN 10/30/16 Metronidazole [Flagyl 500 mg Tablet] 500 mg PO Q6 10/30/16 Ondansetron [Zofran Odt] 8 mg PO TIDP PRN 10/30/16 Oxycodone HCl/Acetaminophen [Percocet 5-325 mg Tablet] 1 tab PO Q4HP PRN Pantoprazole Sodium [Protonix] 40 mg PO BIDACBS 10/30/16 Rosuvastatin Calcium [Crestor 20 mg Tablet] 20 mg PO QHS 10/30/16 Zolmitriptan [Zomig Zmt] 5 mg PO DAILYP PRN MDD 10 MG 10/30/16 Allergies/Adverse Reactions: adhesive tape [Adhesive Tape] Allergy (Verified 10/29/16 16:53) Blisters, Rash iodine [Iodine] Allergy (Verified 10/29/16 16:53) RASH, ITCH latex [Latex] Allergy (Verified 10/29/16 16:53) RASH povidone-iodine [From Betadine] Allergy (Verified 10/29/16 16:53) Soap [From Betadine] Allergy (Verified 10/29/16 16:53) meperidine HCl [From Demerol] Adverse Reaction (Verified 10/29/16 16:53) CAN CAUSE ITCHING IN LARGE DOSES promethazine HCl [From Phenergan] Adverse Reaction (Verified 10/29/16 16:53) Hwenfoz-Bod-Jld Reductase Inhibitor Adverse Reaction (Verified 10/29/16 16:53) elevated LFT's STEROIDS Adverse Reaction (Uncoded 10/29/16 16:53) WEAKNESS TO LEGS Physical Exam Vital Signs: Temp Pulse Resp BP Pulse Ox 98.4 F 67 16 143/76 H 91 L 10/30/16 07:11 10/30/16 10:09 10/30/16 10:09 10/30/16 07:11 10/30/16 10:09 Intake & Output 10/29/16 10/30/16 10/31/16 06:59 06:59 06:59 Intake Total 720 Output Total 600 Balance 120 Weight 87.9 kg General appearance: PRESENT: no acute distress Head exam: PRESENT: atraumatic, normocephalic Neck exam: PRESENT: full ROM Respiratory exam: PRESENT: clear to auscultation stewart Cardiovascular exam: PRESENT: RRR GI/Abdominal exam: PRESENT: normal bowel sounds, soft. ABSENT: guarding, mass, rebound, tenderness Results Laboratory Results: 10/30/16 04:40 10/30/16 04:40 10/29/16 10/30/16 10/30/16 21:10 04:40 04:40 WBC 10.4 RBC 4.03 L Hgb 12.6 L Hct 36.9 L MCV 92 MCH 31.2 MCHC 34.1 RDW 14.3 H Plt Count 170 Seg Neutrophils % 78.3 H Lymphocytes % 13.6 Monocytes % 7.7 Eosinophils % 0.1 Basophils % 0.3 Absolute Neutrophils 8.2 Absolute Lymphocytes 1.4 Absolute Monocytes 0.8 Absolute Eosinophils 0.0 Absolute Basophils 0.0 Sodium 129.3 L Potassium 3.3 L Chloride 88 L Carbon Dioxide 24 Anion Gap 17 BUN 7 Creatinine 0.71 Est GFR ( Amer) > 60 Est GFR (Non-Af Amer) > 60 Glucose 214 H Calcium 9.1 Urine Color YELLOW Urine Appearance CLEAR Urine pH 5.0 Ur Specific [place] 1.014 Urine Protein 30 H Urine Glucose (UA) 150 H Urine Ketones 20 H Urine Blood SMALL H Urine Nitrite NEGATIVE Ur Leukocyte Esterase NEGATIVE Urine WBC (Auto) 0 Urine RBC (Auto) 1 10/29/16 10/29/16 19:55 19:55 Creatine Kinase 39 L CK-MB (CK-2) 0.85 Troponin I < 0.012 Impressions: Abdomen X-Ray 10/29/16 00:00 IMPRESSION: Nonobstructive bowel gas pattern. Assessment & Plan - Plan Summary Plan Summary: Patient has no LLQ tenderness/guarding/or rebound. is improved. No need for surgical intervention. Will sign off. Thank you!
[2016-10-30 14:49] VITALS: BP 133/77
[2016-10-30] MEDS ORDERED: LANSOPRAZOLE 30 MG TAB.RAP.DR PO SCH (16:00)
[2016-10-30] MEDS ORDERED: NOREPINEPHRINE BITARTRATE INJ/PF 4 MG/4 ML SDV IV ONE ×2 (16:32→16:35)
[2016-10-30] MEDS ORDERED: PROPOFOL 0 ML IV ONE (16:33)
[2016-10-30] MEDS ORDERED: CALCIUM GLUCONATE 1000 MG/10 ML INJ IV ONE ×2 (16:37→16:57)
[2016-10-30] MEDS ORDERED: SODIUM BICARBONATE 8.4% INJ 50 MEQ/50 ML DISP.SYRIN ONE ×4 (16:59→20:37)
--- NOTE | 2016-10-30 17:05 | PDOC PROGRESS REPORT ---
Subjective Progress Note for:: 10/30/16 Subjective:: Patient was seen on morning rounds. He is sitting on the side of the bed eating his clear liquids breakfast tray. He states he is mildly nauseated at the present time. He denies any significant abdominal pain. States he has been having intermittent periods of diarrhea. Denies fever or chills. This is his third episode of diverticulitis in 2 years. Remaining review of systems are negative Physical Exam Vital Signs: Temp Pulse Resp BP Pulse Ox 98.4 F 67 16 143/76 H 91 L 10/30/16 07:11 10/30/16 10:09 10/30/16 10:09 10/30/16 07:11 10/30/16 10:09 Intake & Output 10/29/16 10/30/16 10/31/16 06:59 06:59 06:59 Intake Total 720 Output Total 600 Balance 120 Weight 87.9 kg General appearance: PRESENT: no acute distress, well-developed, well-nourished Head exam: PRESENT: atraumatic, normocephalic Eye exam: PRESENT: conjunctiva pink, EOMI, PERRLA. ABSENT: scleral icterus Ear exam: PRESENT: normal external ear exam Mouth exam: PRESENT: moist, tongue midline Neck exam: ABSENT: carotid bruit, JVD, lymphadenopathy, thyromegaly Respiratory exam: PRESENT: clear to auscultation stewart, symmetrical, unlabored. ABSENT: rales, rhonchi, wheezes Cardiovascular exam: PRESENT: RRR. ABSENT: diastolic murmur, rubs, systolic murmur Pulses: PRESENT: normal dorsalis pedis pul Vascular exam: PRESENT: normal capillary refill GI/Abdominal exam: PRESENT: normal bowel sounds, soft. ABSENT: distended, guarding, mass, organolmegaly, rebound, tenderness Rectal exam: PRESENT: deferred Extremities exam: PRESENT: full ROM. ABSENT: calf tenderness, clubbing, pedal edema Neurological exam: PRESENT: alert, awake, oriented to person, oriented to place , oriented to time, oriented to situation, CN II-XII grossly intact. ABSENT: motor sensory deficit Psychiatric exam: PRESENT: appropriate affect, normal mood. ABSENT: homicidal ideation, suicidal ideation Skin exam: PRESENT: dry, intact, warm. ABSENT: cyanosis, rash Results Laboratory Results: 10/30/16 04:40 10/30/16 04:40 10/29/16 10/30/16 10/30/16 21:10 04:40 04:40 WBC 10.4 RBC 4.03 L Hgb 12.6 L Hct 36.9 L MCV 92 MCH 31.2 MCHC 34.1 RDW 14.3 H Plt Count 170 Seg Neutrophils % 78.3 H Lymphocytes % 13.6 Monocytes % 7.7 Eosinophils % 0.1 Basophils % 0.3 Absolute Neutrophils 8.2 Absolute Lymphocytes 1.4 Absolute Monocytes 0.8 Absolute Eosinophils 0.0 Absolute Basophils 0.0 Sodium 129.3 L Potassium 3.3 L Chloride 88 L Carbon Dioxide 24 Anion Gap 17 BUN 7 Creatinine 0.71 Est GFR ( Amer) > 60 Est GFR (Non-Af Amer) > 60 Glucose 214 H Calcium 9.1 Urine Color YELLOW Urine Appearance CLEAR Urine pH 5.0 Ur Specific [place] 1.014 Urine Protein 30 H Urine Glucose (UA) 150 H Urine Ketones 20 H Urine Blood SMALL H Urine Nitrite NEGATIVE Ur Leukocyte Esterase NEGATIVE Urine WBC (Auto) 0 Urine RBC (Auto) 1 10/29/16 10/29/16 19:55 19:55 Creatine Kinase 39 L CK-MB (CK-2) 0.85 Troponin I < 0.012 Impressions: Abdomen X-Ray 10/29/16 00:00 IMPRESSION: Nonobstructive bowel gas pattern. Assessment & Plan - Diagnosis (1) Diverticulitis large intestine w/o perforation or abscess w/o bleeding Is this a current diagnosis for this admission?: Yes (2) Diabetes mellitus Qualifiers: Diabetes mellitus type: type 2 Diabetes mellitus complication status: with neurologic complications Diabetes mellitus complication detail: with polyneuropathy Diabetes mellitus prison insulin use: unspecified prison insulin use status Qualified Code(s): E11.42 - Type 2 diabetes mellitus with diabetic polyneuropathy Is this a current diagnosis for this admission?: Yes (3) Hypothyroidism Qualifiers: Hypothyroidism type: unspecified Qualified Code(s): E03.9 - Hypothyroidism , unspecified (7) CAD (coronary artery disease) Qualifiers: Coronary Disease-Associated Artery/Lesion type: [place] artery [place] vs. transplanted heart: [place] heart Associated angina: angina presence unspecified Qualified Code(s): I25.10 - Atherosclerotic heart disease of [place] coronary artery without angina pectoris (8) Diabetic neuropathy Qualifiers: Diabetes mellitus type: type 2 Diabetes mellitus complication detail: diabetic polyneuropathy Qualified Code(s): E11.42 - Type 2 diabetes mellitus with diabetic polyneuropathy
[2016-10-30] MEDS ORDERED: MAGNESIUM SULFATE/D5W 2 GM/200 ML RTUPB IV ONE (17:07)
--- NOTE | 2016-10-30 17:10 | RADIOLOGY REPORT (SQ) ---
EXAM DESCRIPTION: CHEST SINGLE VIEW COMPLETED DATE/TIME: 10/30/2016 4:52 pm REASON FOR STUDY: Code COMPARISON: 09/09/2016 EXAM PARAMETERS: NUMBER OF VIEWS: One view. TECHNIQUE: Single frontal radiographic view of the chest acquired. RADIATION DOSE: NA LIMITATIONS: Expiratory lung volumes. FINDINGS: LUNGS AND PLEURA: Expiratory lung volumes. No pneumothorax. No consolidation or signific ant pleural effusion. MEDIASTINUM AND HILAR STRUCTURES: Stable. HEART AND VASCULAR STRUCTURES: Stable. BONES: No acute findings. HARDWARE: CABG. Dual lead cardiac pacer. OTHER: No other significant finding. IMPRESSION: Endotracheal tube tip overlies the mid trachea. Expiratory lung volumes. No consolidat ion. TECHNICAL DOCUMENTATION: JOB ID: [id number]
[2016-10-30] MEDS ORDERED: VASOPRESSIN INJ 20 UNIT/1 ML VIAL ONE (17:26)
[2016-10-30 18:03] LABS: CALCIUM 8.4 mg/dL (8.4-10.2); CARBON DIOXIDE 27 mmol/L (22-30); CHLORIDE 93 mmol/L (98-107); CREATININE RESULT 0.66 mg/dL (0.52-1.25); GLUCOSE 257 mg/dL (75-110); SODIUM 141.5 mmol/L (137-145)
[2016-10-30 18:04] LABS: BLOOD UREA NITROGEN 7 mg/dL (7-20); POTASSIUM 3.3 mmol/L (3.6-5.0)
[2016-10-30 18:47] LABS: ANION GAP 22 (5-19)
--- NOTE | 2016-10-30 18:56 | Progress Note ---
Provider Note Provider Note: Called to [facility] inpatient room. Patient found to be in PEA initially and given epinephrine and high quality CPR started. Patient was then found to be in ventricular tachycardia. Patient was cardioverted and epinephrine given and CPR started for multiple rounds. Patient was intubated and taken to the ICU. He had a brief return of spontaneous breathing and pulse. But again lapsed into PEA followed by ventricular tachycardia on the way to the ICU. Patient was given multiple rounds of sodium bicarbonate and calcium gluconate. He was given 300 mg of amiodarone. He was also given vasopressin and Levophed drip. Prior to discontinuation of care, patient was suctioned and more than 200 mL of bright red blood was returned. Patient's family was consulted and upon arrival of his she asked that we stop CPR. Time of was called at 1743. I personally pronounced this patient. Family declined autopsy. This case was not referred to the medical technicians. Patiet was coded for 90 minutes and I was personally present for these.
[2016-10-30] MEDS ORDERED: AMIODARONE HCL INJ 150 MG/3 ML VIAL IV ONE (20:09)
[2016-10-30] MEDS ORDERED: EPINEPHRINE INJ 1 MG/10 ML DISP.SYRIN ONE ×2 (20:09→20:37)
[2016-10-30] MEDS ORDERED: GABAPENTIN 300 MG CAPSULE PO SCH (22:00)
[2016-10-30] MEDS ORDERED: LIOTHYRONINE SODIUM 5 MCG TABLET PO SCH (22:00)
[2016-10-30] MEDS ORDERED: (PENDING PHARMACY ID) (Liothyronine Sodium [Cytomel] 10 MCG) PO SCH (22:00)
[2016-10-30] MEDS ORDERED: BUPROPION HCL 100 MG TABLET PO SCH (22:00)
[2016-10-30] MEDS ORDERED: CARBIDOPA/LEVODOPA 25-100 MG TABLET PO SCH (22:00)
[2016-10-30] MEDS ORDERED: (PENDING PHARMACY ID) (Gabapentin Enacarbil [Horizant] 600 MG) PO SCH ×2 (22:00)
[2016-10-30] MEDS ORDERED: (PENDING PHARMACY ID) (Donepezil Hcl [Aricept] 10 MG) PO SCH (22:00)
[2016-10-30] MEDS ORDERED: DONEPEZIL HCL 5 MG TABLET PO SCH (22:00)
--- NOTE | 2016-10-31 08:20 | Death Summary ---
Summary Date : 10/30/16 Time of :: 17:43 Autopsy: No Resuscitation Status: Full Code Consulting Provider: Dr Adam, cardiology. Dr Mcintosh, General surgery - Final Diagnosis (1) CAD (coronary artery disease) Is this a current diagnosis for this admission?: Yes (2) Diverticulitis large intestine w/o perforation or abscess w/o bleeding Is this a current diagnosis for this admission?: Yes (3) Diabetes mellitus Is this a current diagnosis for this admission?: Yes (4) Hypothyroidism Is this a current diagnosis for this admission?: Yes (5) Left bundle branch block (LBBB) on electrocardiogram Is this a current diagnosis for this admission?: Yes (6) Status post gastric bypass for obesity Is this a current diagnosis for this admission?: Yes (7) Anxiety Is this a current diagnosis for this admission?: Yes (8) Diabetic neuropathy Is this a current diagnosis for this admission?: Yes Hospital Course:: TATA RAYGOZA is a 71 year old male with a past medical history of coronary artery disease, permanent pacemaker, diabetes, obstructive sleep apnea, diverticulitis, parkinsonism, anxiety with panic,and dementia. Patient been in his usual state of health until approximately 72 hours prior to presentation developing abdominal pain. He was seen in the emergency room diagnosed with diverticulitis without abscess by CT he was placed on Cipro and Flagyl and discharged home however despite compliance with medication and a clear liquid diet he has persistent nausea with vomiting intolerant of oral antibiotics and residual left-sided pain. He is referred to the hospitalist for admission for failure of outpatient treatment. Patient otherwise denies changes in medications, blood in vomitus or bowel movement. He had no fever or leucocytosis. He was given gentle IV normal saline due to his hyponatremia and placed on IV cipro and flagyl. He was admitted on observation status. The patient was able to tolerate clear liquid diet with no vomiting. He was evaluated by Dr Mcintosh, as this was his third episode of acute diverticulitis. The patient was without complaints until he was noted to go into acute respiratory distress with agonal breathing pattern. He was noted to be in ventricular tachycardia [facility] was called. Dr Adam, cob sawyer was consulted. After lengthy resuscitative measures the code was called and patient was pronounced at [address] Tsai and Dr Adam.
[2016-10-31] MEDS ORDERED: CITALOPRAM HYDROBROMIDE 20 MG TABLET PO SCH (10:00)
[2016-10-31] MEDS ORDERED: ALLOPURINOL 300 MG TABLET PO SCH (10:00)
[2016-10-31] MEDS ORDERED: (PENDING PHARMACY ID) (Citalopram Hydrobromide [Celexa 40 Mg Tablet] 1 TAB) PO SCH (10:00)
[2016-10-31] MEDS ORDERED: ASPIRIN 81 MG TABLET, ENT COATED PO SCH (10:00)
[2016-10-31] MEDS ORDERED: ISOSORBIDE MONONITRATE 60 MG TAB.ER.24H PO SCH (10:00)
[2016-10-31] MEDS ORDERED: CHOLECALCIFEROL (D3) 400 UNIT TABLET PO SCH (10:00)
[2016-10-31] MEDS ORDERED: CARVEDILOL 6.25 MG TABLET PO SCH (10:00)
== END 2016-10-30 17:43 | disposition left against medical advice (07) | DRG 392 ==
LOC: ER 16:46 → EH 19:34 → UNDOADMOB 19:47 → EH 19:47 → 4N 21:48 → ICU 10-30 16:28 → OBSVTOIN 10-30 17:20
PROVIDERS: ADMIT Internal Medicine; ATTEND Internal Medicine
PROC: 0BH17EZ Insertion of Endotracheal Airway into Trachea, Via Natural or Artificial Opening (ICD-10-PCS; principal; 2016-10-30)
DX: K57.32 Diverticulitis of large intestine without perforation or abscess without bleeding (principal); E87.1 Hypo-osmolality and hyponatremia; I47.2 Ventricular tachycardia; I25.10 Atherosclerotic heart disease of native coronary artery without angina pectoris; F03.90 Unspecified dementia, unspecified severity, without behavioral disturbance, psychotic disturbance, mood disturbance, and anxiety; Z95.0 Presence of cardiac pacemaker; G47.33 Obstructive sleep apnea (adult) (pediatric); F41.1 Generalized anxiety disorder; E11.42 Type 2 diabetes mellitus with diabetic polyneuropathy; E78.5 Hyperlipidemia, unspecified; I10 Essential (primary) hypertension; G20 Parkinson's disease; E03.9 Hypothyroidism, unspecified; I44.7 Left bundle-branch block, unspecified; I25.2 Old myocardial infarction; Z82.49 Family history of ischemic heart disease and other diseases of the circulatory system; Z79.84 Long term (current) use of oral hypoglycemic drugs; Z79.82 Long term (current) use of aspirin; Z95.1 Presence of aortocoronary bypass graft; Z91.040 Latex allergy status; Z79.899 Other long term (current) drug therapy
CPT/HCPCS: 31500; 36415; 71010; 74020; 74176; 80048; 80053; 81001; 82550; 82553; 82962; 83690; 84484; 85025; 87040; 92950; 93005; 93010; 94002; 94660; 94799; 96361; 96365; 96368; 96374; 96375; 96376; 99284; 99285; G0378; J0171; J0282; J0744; J1170; J1644; J1815; J2405; J3490; J7030